=== PATIENT | female | born 1935 | race Caucasian/White ===

== ENCOUNTER → 2016-09-12 | Outpatient (CLI) | payer OTHER, MEDICARE ==
[~2016-09-12] MED LIST: ALBUAER2 INH; ASPI81TA28 PO; CHOL20007 PO; CLR10 PO; EZET10TA63 PO; HYDR-5688 PO; LOSA50TA6 PO; METO100T44 PO; MULT-190 PO; PRAV20TA PO; SPIRONLACTONE HCTZ PO
--- NOTE | 2016-09-12 10:56 | DIAGNOSTIC IMAGING REPORT ---
BILATERAL CAROTID DOPPLER STUDY HISTORY: Carotid stenosis Z98.890 H/O carotid [id number] COMPARISON: 12/16/2015. 10/24/2014. TECHNIQUE: Real-time, grayscale, and color Doppler sonography of the carotid arteries was performed. Imaging reviewed in the transverse and longitudinal planes. All measurements were calculated based on NASCET criteria. FINDINGS: Antegrade flow is seen in the bilateral vertebral arteries. The brachial pressures are hemodynamically similar. Mild plaque formation bilaterally. Interval right endarterectomy. The peak systolic velocity within the right ICA is 83. The right systolic ratio is 1.2. The peak systolic velocity within the left ICA is 85. The left systolic ratio is 1.5. IMPRESSION: 1. No significant stenotic process of the common or internal carotid arteries status post endarterectomy. 2. Moderate 50 present narrowing right external carotid artery. Electronically signed by: Raul Suresh M.D. 09/12/2016 10:55 AM Dictated Date/Time: 09/12/2016 10:53 AM
== END | disposition home or self-care (01) ==
LOC: C.ULTR 09:51
PROVIDERS: ATTEND Surgery
DX: Z98.890 Other specified postprocedural states (principal); I65.21 Occlusion and stenosis of right carotid artery

== ENCOUNTER → 2016-11-21 | Outpatient (CLI) | payer OTHER, MEDICARE ==
[~2016-11-21] MED LIST changes: -HYDR-5688 PO
[2016-11-21 12:17] LABS: BASO % 0.4 %; BASO ABS # 0.03 K/uL (0-0.2); COMPLETE YES; EOS % 1.3 %; HEMATOCRIT 40.8 % (37-47); LYMPH % 10.9 %; LYMPH ABS # 0.84 K/uL (1.2-3.4); MEAN CELL VOLUME 93.2 fL (80-100); MEAN CORPUSCULAR HGB CONC 31.1 g/dl (32-36); MONO % 8.9 %; NEUT % 78.5 %; PLATELET COUNT 199 K/uL (130-400); RED BLOOD COUNT 4.38 M/uL (4.2-5.4); WHITE BLOOD COUNT 7.74 K/uL (4.8-10.8)
[2016-11-21 12:29] LABS: CALCIUM 9.3 mg/dl (8.5-10.1)
[2016-11-21 12:31] LABS: ESTIMATED AVERAGE GLUCOSE 131 mg/dl; HA1C FLAG Normal (Normal)
[2016-11-21 12:36] LABS: ALT/SGPT 19 U/L (12-78); BLOOD UREA NITROGEN 15 mg/dl (7-18); BUN/CREATININE RATIO 16.9 (10-20); CARBON DIOXIDE 28 mmol/L (21-32); CHLORIDE 106 mmol/L (98-107); CHOLESTEROL 146 mg/dl (0-200); CREATININE 0.87 mg/dl (0.60-1.20); GLUCOSE 117 mg/dl (70-99); POTASSIUM 4.6 mmol/L (3.5-5.1); SODIUM 142 mmol/L (136-145); TRIGLYCERIDES 101 mg/dl (0-150); VERY LOW DENSITY LIPOPROT CALC 20 mg/dl
[2016-11-21 12:39] LABS: ALKALINE PHOSPHATASE 108 U/L (45-117); AST/SGOT 20 U/L (15-37); HDL CHOLESTEROL 49 mg/dl; LDL CHOLESTEROL CALCULATED 77 mg/dl
[2016-11-21 12:50] LABS: URINE APPEARANCE CLOUDY (CLEAR); URINE BILIRUBIN NEG (NEG); URINE COLOR DK YELLOW; URINE EPITHELIAL CELL AUTO >30 /lpf (0-5); URINE NITRITE POS (NEG); URINE PH 6.5 (4.5-7.5); UROBILINOGEN NEG (NEG); ZZUR CULT IF INDIC CLEAN CATCH YES
[2016-11-21 12:57] LABS: MANUAL MICROSCOPIC REQUIRED? NO; REVIEW REQ? NO
== END | disposition home or self-care (01) ==
LOC: C.LABBFT 09:27
PROVIDERS: ATTEND Internal Medicine
DX: E11.9 Type 2 diabetes mellitus without complications (principal); E78.5 Hyperlipidemia, unspecified; E55.9 Vitamin D deficiency, unspecified

== ENCOUNTER → 2017-01-19 | Outpatient (CLI) | payer OTHER, MEDICARE ==
[~2017-01-19] MED LIST changes: -METO100T44 PO; +METO1TAB69 PO
--- NOTE | 2017-01-19 14:04 | MAMMOGRAPHY REPORT ---
BILATERAL DIGITAL SCREENING MAMMOGRAM WITH CAD: 01/19/2017 CLINICAL HISTORY: Routine screening. Patient has no complaints. TECHNIQUE: Current study was also evaluated with a Computer Aided Detection (CAD) system. Bilateral CC and MLO views were obtained. COMPARISON: Comparison is made to exams dated: 01/19/2016 mammogram, 01/14/2015 mammogram, 01/13/2014 mamm ogram, 01/09/2013 mammogram, 01/09/2012 mammogram, and 01/06/2011 mammogram - [facility] er. BREAST COMPOSITION: There are scattered areas of fibroglandular density in both breasts. FINDINGS: No suspicious masses, calcifications, or areas of architectural distortion are noted in ei ther breast. There has been no significant interval change compared to prior exams. Bilateral benign -appearing calcifications are not significantly changed. IMPRESSION: ACR BI-RADS CATEGORY 2: BENIGN There is no mammographic evidence of malignancy. A 1 year screening mammogram is recommended. The pa tient will receive written notification of the results. Approximately 10% of breast cancers are not detected with mammography. A negative mammographic report should not delay biopsy if a clinically suggestive mass is present. Danica Floyd M.D. ah/:01/19/2017 12:42:57 [employer] Room Attendant: Rita HALL)(Vishal), [facility] letter sent: Normal 1/2 BI-RADS Code: ACR BI-RADS Category 2: Benign
== END | disposition home or self-care (01) ==
LOC: C.MAMM 11:51
PROVIDERS: ATTEND Internal Medicine
DX: Z12.31 Encounter for screening mammogram for malignant neoplasm of breast (principal)

== ENCOUNTER → 2017-06-15 | Outpatient (CLI) | payer OTHER, MEDICARE ==
[~2017-06-15] MED LIST changes: +METO100T44 PO; -METO1TAB69 PO
[2017-06-15 13:15] LABS: BLOOD UREA NITROGEN 22 mg/dl (7-18); CALCIUM 9.2 mg/dl (8.5-10.1); CARBON DIOXIDE 26 mmol/L (21-32); CREATININE 0.83 mg/dl (0.60-1.20); GLUCOSE 116 mg/dl (70-99); POTASSIUM 4.1 mmol/L (3.5-5.1); SODIUM 137 mmol/L (136-145)
== END | disposition home or self-care (01) ==
LOC: C.LABBFT 10:29
PROVIDERS: ATTEND Internal Medicine
DX: E11.9 Type 2 diabetes mellitus without complications (principal); I10 Essential (primary) hypertension; E55.9 Vitamin D deficiency, unspecified

== ENCOUNTER → 2017-09-04 | Outpatient (CLI) | payer OTHER, MEDICARE | END | disposition home or self-care (01) | LOC: C.LABBFT 10:29 | PROVIDERS: ATTEND Internal Medicine | DX: E55.9 Vitamin D deficiency, unspecified (principal) ==

== ENCOUNTER → 2017-09-20 | Outpatient (CLI) | payer OTHER, MEDICARE ==
--- NOTE | 2017-09-20 15:25 | DIAGNOSTIC IMAGING REPORT ---
BILATERAL CAROTID DOPPLER STUDY HISTORY: I65.29 Carotid artery stenosis, [id number] H/O carotid COMPARISON: Carotid Doppler 09/12/2016. TECHNIQUE: Real-time, grayscale, and color Doppler sonography of the carotid arteries was performed. Imaging reviewed in the transverse and longitudinal planes. All measurements were calculated based on NASCET criteria. FINDINGS: Antegrade flow is seen in the bilateral vertebral arteries. The patient deferred brachial pressures. Mild right and moderate left scattered calcified plaque within the carotid arteries. Prior right endarterectomy. Moderate stenosis within the proximal right external carotid artery with a peak velocity of 225 cm/s. The peak systolic velocity within the right ICA is 73 cm/s. The right systolic ratio is 1.0. The peak systolic velocity within the left ICA is 77 cm/s. The left systolic ratio is 1.0. IMPRESSION: No hemodynamically significant stenosis seen within the bilateral common or internal carotid arteries. Moderate right external carotid artery stenosis is again noted. Electronically signed by: Blair Kirkland M.D. 09/20/2017 3:23 PM Dictated Date/Time: 09/20/2017 3:21 PM
== END | disposition home or self-care (01) ==
LOC: C.ULTR 13:09
PROVIDERS: ATTEND Surgery
DX: I65.21 Occlusion and stenosis of right carotid artery (principal); Z98.890 Other specified postprocedural states

== ENCOUNTER → 2018-01-22 | Outpatient (CLI) | payer OTHER, MEDICARE ==
--- NOTE | 2018-01-22 13:08 | MAMMOGRAPHY REPORT ---
BILATERAL DIGITAL SCREENING MAMMOGRAM TOMOSYNTHESIS WITH CAD: 01/22/2018 CLINICAL HISTORY: Routine screening. TECHNIQUE: The study was acquired using full field digital technology and interpreted from soft copy. Breast tomosynthesis in addition to standard 2D mammography was performed. Current study was also ev aluated with a Computer Aided Detection (CAD) system. COMPARISON: Comparison is made to exams dated: 01/19/2017 mammogram, 01/19/2016 mammogram, 01/14/2015 massimo mogram, 01/13/2014 mammogram, 01/09/2013 mammogram, and 01/09/2012 mammogram - [facility] er. BREAST COMPOSITION: There are scattered areas of fibroglandular density in both breasts. FINDINGS: There are moderate vascular calcifications in the breasts. Scattered stable groupings of c oarse heterogeneous calcifications bilaterally. No suspicious mass, architectural distortion or new c luster of microcalcifications is seen. IMPRESSION: ACR BI-RADS CATEGORY 1: NEGATIVE There is no mammographic evidence of malignancy. A 1 year screening mammogram is recommended.( 019) The patient will receive written notification of the results. Some breast cancers are not detected with mammography. A negative mammographic report should not chacorta y biopsy if a clinically suggestive mass is present. Sandie Kendall M.D. ay/:01/22/2018 12:57:[address] Foreman: RT Phil(Matteo)(M), [facility] letter sent: Normal 1/2 BI-RADS Code: ACR BI-RADS Category 1: Negative
== END | disposition home or self-care (01) ==
LOC: C.MAMM 12:27
PROVIDERS: ATTEND Internal Medicine
DX: Z12.31 Encounter for screening mammogram for malignant neoplasm of breast (principal)

== ENCOUNTER 2023-04-24 20:30 | Inpatient (IN) ==
--- NOTE | 2023-04-24 20:55 | Emergency Department Note ---
Impression & Plan Closed left humeral fracture, Fall from standing, Gait instability, Leukocytosis ED Provider Note HISTORY OF PRESENT ILLNESS: Patient is an 87-year-old female presenting with left upper arm pain and facial pain after fall from standing. Patient reports that she lost her footing at home and fell forward, striking her left shoulder and left face on the ground. Denies loss of consciousness. She is on aspirin daily. Was unable to get up off the ground by herself at 911 was called. Patient denies any numbness or tingling down her arm. She denies passing out. Denies any chest pain, shortness of breath or lightheadedness prior to the fall. She does states she just lost her footing. She states that she is normally ambulatory without any assistive devices, but in the last week has been requiring use of a cane or a walker to remain balance secondary to some gait instability. ROS: as above PHYSICAL EXAM: Constitutional: Patient appears in no acute distress. HENT: Head: Normocephalic. Ecchymosis and developing swelling to the left lateral eyebrow and temporal region. Eyes: EOMI, PERRL Mouth/Throat: Mucous membranes moist. Neck: Trachea midline. Neck supple. Cardiovascular: RRR, No murmurs, rubs or gallops. Intact distal pulses. Pulmonary/Chest: No respiratory distress. Breath sounds clear and equal bilaterally. No wheezes or rales. No chest wall tenderness to palpation. Abdominal: Abdomen soft, no tenderness, rebound or guarding. Musculoskeletal: Patient is able to straight leg raise bilaterally without any pain in the hips or low back. - LUE: Patient has ecchymosis and swelling to the upper left arm. Tender to palpation over the proximal humerus. Able to flex and extend at the elbow. Able to flex and extend at the wrist. Able to give thumbs up, cross fingers and okay sign. Sensation intact to light touch at the nerve distributions of the arm. Intact radial pulse Skin: Warm and dry. No rash, erythema, pallor or cyanosis Psychiatric: Appropriate mood and affect for situation. Neurological: Alert and keenly responsive. CN II-XII grossly intact, moving all extremities equally and fully. MDM: - Vitals signs showed hypertension. - History obtained via patient. Patient presents with left arm pain and facial pain after fall from standing. Patient reports she lost her footing at her home and fell forward, striking her left shoulder and face on the ground. Denies loss of consciousness. She is on aspirin daily. Was unable to get up off the ground and had to call 911. Denies any numbness or tingling down her arm. Denies any chest pain, shortness of breath or lightheadedness prior to the fall. - Chronic conditions affecting care: HTN; HLD; DM-2 - Differential diagnoses include, but are not limited to: Intracranial hemorrhage; CVA; humerus fracture; humerus dislocation; UTI - Order placed for continuous cardiac monitoring. At this time, monitor showed rate of 65 bpm with normal sinus rhythm, per my interpretation. - External medical records reviewed. EMS run sheet was reviewed. Patient was vitally stable in route. No medications were given prehospital. - EKG reviewed by myself showed normal sinus rhythm. Rate 74 bpm. QTc 497. No acute ischemic changes. - Laboratory workup interpreted by myself showed leukocytosis (WBC 14.74) with left shift; stable electrolytes; normal troponin - Xray of left humerus showed proximal humerus fracture, per my interpretation - CT head wo contrast negative for acute intracranial pathology. - Patient givne 50 mcg IV fentanyl for pain control. - Patient's arm was placed in a sling. - Discussed results with patient and her family at bedside. They report that the patient does live alone. States in the last week she has been very unsteady on her feet and has not actually been using a cane or a walker to get around. Given that the patient has a left humerus fracture, she would not be able to balance with a walker. Will admit for PT/OT assessment. - Discussion was had with care associate about patient's case and need for admission - Hospitalist consulted for admission - Patient [facility] service for further evaluation and management. ASSESSMENT AND PLAN: Diagnosis: Left humeral fracture; leukocytosis; fall from standing; gait instability Plan: Admit Past Med/Surg History Medical History Urge incontinence of urine Allergic rhinitis Asthma Carotid artery stenosis, asymptomatic Diabetes mellitus, controlled Hyperlipidemia Hypertension Low back pain Nephrolithiasis Squamous cell carcinoma of vulva Vitamin D deficiency Surgical History History of vulvectomy H/O carotid endarterectomy History of hysterectomy History of cholecystectomy Family History Father Cardiac disorder Myocardial infarction Brother Diabetes Mother Denies family history of Ovarian cancer Prostate cancer Breast cancer Colorectal cancer Uterine cancer Social History (Updated 04/19/23 @ 10:53 by Rita Serrano LPN) Smoking Status: Never smoker Tobacco Type: Cigarettes Age Started Using Tobacco: 17; Age Quit Using Tobacco: 29; packs per day: 0.75; Second Hand Exposure: Yes (her dad and 3 brothers all smoked ); Do You Dip or Chew Tobacco: No; Hx Alcohol Use: Yes Alcohol type: hard liquor Alcohol Intake Frequency: 2-3 x/Week Hx Substance Use: No Preferred Language: Bulgarian Visual Impairment: Limited Hearing Ability: Normal marital status: / Current Living Situation: Alone current occupational status: retired 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 [employer] How many Children do You have: 2 Feels Safe at Home: Yes Childhood Exposure to Second-Hand Smoke: Yes Diet: regular caffeine: Yes Dental Care, Regularly: Yes Physical Activity Frequency: Does not Exercise Seatbelt Use: always Sunscreen Use: No Assistive Devices: Cane and Glasses Allergies Allergies Allergy/AdvReac Type Severity Reaction Status Date / Time lisinopril Allergy Unknown COUGH Verified 04/24/23 22:19 losartan AdvReac Unknown ABDOMINAL Verified 04/24/23 22:19 PAIN Home Meds Home Medications Medication Instructions Recorded Confirmed aspirin 81 mg tablet 81 mg PO DAILY 01/12/19 04/24/23 blood sugar diagnostic (OneTouch #10 ea 01/12/19 04/19/23 Verio test strips) lancets 30 gauge (OneTouch Delica #25 ea 01/12/19 04/18/23 Lancets) Previous Rx's Medication Instructions Recorded amlodipine 5 mg tablet 5 mg PO DAILY #90 tabs 09/12/22 albuterol sulfate 90 mcg/actuation 2 puff inhalation Q4H PRN 10/10/22 aerosol inhaler shortness of breath #18 grams nystatin 100,000 unit/gram topical 1 applic topical BID PRN 10/10/22 powder Candidiasis #60 grams vit C 250 mg-E 90 mg-zinc 40 1 tab PO BID #60 tabs 05/01/23 mg-copper 1 [id number] chew tablet (PreserVision AREDS-2) cholecalciferol (vitamin D3) 50 100 mcg (2 x 50 mcg (2,000 unit)) 12/16/22 mcg (2,000 unit) capsule PO DAILY #30 caps ezetimibe 10 mg tablet 10 mg PO DAILY #90 tabs 12/19/22 metoprolol succinate 100 mg 100 mg PO DAILY #90 tabs 12/19/22 tablet,extended release 24 hr pravastatin 10 mg tablet 10 mg PO HS #90 tabs 12/19/22 alendronate 70 mg tablet 70 mg PO .COMPLEX #4 tabs 04/18/23 Results & Data (ED) Vital Signs Vital Signs - 24 hr 04/24/23 20:40 04/24/23 20:40 04/24/23 20:43 Temperature Temperature Source Pulse Rate 68 71 Pulse Rate [Radial] Pulse Rate from SpO2 Sensor 70 Pulse Rhythm Respiratory Rate 24 Respiratory Effort / Characteristics Respiratory Depth Respiratory Pattern Blood Pressure 172/77 H Blood Pressure Mean 103 Pulse Oximetry 94 Oxygen Delivery Method Sepsis Recent Fever Within 48 Hours Sepsis New/Unexplained Change in Mental Status Sepsis Action Taken by Nursing 04/24/23 20:45 04/24/23 20:50 04/24/23 21:00 Temperature 36.3 C L Temperature Source Oral Pulse Rate 74 81 90 Pulse Rate [Radial] Pulse Rate from SpO2 Sensor 90 Pulse Rhythm Respiratory Rate 17 22 19 Respiratory Effort / Characteristics Non-Labored Spontaneous Respiratory Depth Normal Respiratory Pattern Regular Blood Pressure 172/77 H Blood Pressure Mean 108 Pulse Oximetry 93 96 Oxygen Delivery Method Room Air Sepsis Recent Fever Within 48 Hours No Sepsis New/Unexplained Change in Mental Status N/A Sepsis Action Taken by Nursing No Action Required 04/24/23 21:03 04/24/23 21:10 04/24/23 21:20 Temperature Temperature Source Pulse Rate 92 H 86 80 Pulse Rate [Radial] Pulse Rate from SpO2 Sensor 86 79 Pulse Rhythm Regular Respiratory Rate 17 19 24 Respiratory Effort / Characteristics Respiratory Depth Respiratory Pattern Blood Pressure Blood Pressure Mean Pulse Oximetry 94 92 94 Oxygen Delivery Method Room Air Sepsis Recent Fever Within 48 Hours Sepsis New/Unexplained Change in Mental Status Sepsis Action Taken by Nursing 04/24/23 21:30 04/24/23 21:40 04/24/23 22:20 Temperature Temperature Source Pulse Rate 73 60 Pulse Rate [Radial] 65 Pulse Rate from SpO2 Sensor 185 H Pulse Rhythm Respiratory Rate 29 H 21 17 Respiratory Effort / Characteristics Non-Labored Spontaneous Respiratory Depth Normal Respiratory Pattern Regular Blood Pressure Blood Pressure Mean Pulse Oximetry 81 L 90 Oxygen Delivery Method Room Air Sepsis Recent Fever Within 48 Hours Sepsis New/Unexplained Change in Mental Status Sepsis Action Taken by Nursing Laboratory Data 04/24/23 21:39 04/24/23 21:39 Lab Results 04/24/23 Range/Units 21:39 WBC 14.74 H (4.8-10.8) K/ul RBC 4.19 L (4.20-5.40) M/uL Hgb 12.6 (12.0-16.0) g/dl Hct 39.4 (37.0-47.0) % MCV 94.0 (80.0-100.0) fL MCH 30.1 (25.0-34.0) pg MCHC 32.0 (32.0-36.0) g/dL RDW Std Deviation 47.0 H (36.4-46.3) fL RDW Coeff of Kassandra 13.6 (11.5-14.5) % Plt Count 168 (130-400) K/uL MPV 11.9 (9.4-12.4) fL Immature Gran % (Auto) 0.3 % Neut % (Auto) 90.9 % Lymph % (Auto) 3.7 % Henry % (Auto) 4.7 % Eos % (Auto) 0.1 % Baso % (Auto) 0.3 % Neut # (Auto) 13.41 H (1.40-6.50) K/uL Lymph # (Auto) 0.54 L (1.20-3.40) K/uL Henry # (Auto) 0.69 H (0.11-0.59) K/uL Eos # (Auto) 0.01 (0.00-0.50) K/uL Baso # (Auto) 0.05 (0.00-0.20) K/uL Immature Gran # (Auto) 0.04 (0.01-0.20) K/uL Sodium 139 (136-145) mmol/L Potassium 3.6 (3.5-5.1) mmol/L Chloride 105 (98-107) mmol/L Carbon Dioxide 25 (21-32) mmol/L Anion Gap 9 (3-11) BUN 19 (6-23) mg/dl Creatinine 0.58 L (0.6-1.2) mg/dl Est Cr Clr Drug Dosing 55.9 ml/min Est GFR ( Amer) 96.1 ml/min Est GFR (Non-Af Amer) 82.9 ml/min BUN/Creatinine Ratio 32.8 H (10-20) Glucose 166 H (70-99(Fasting)) mg/dl Calcium 9.0 (8.6-10.3) mg/dl Magnesium 1.9 (1.7-2.4) mg/dl Total Bilirubin 0.3 (0.2-1.0) mg/dl AST 17 (13-39) U/L ALT 12 (7-52) U/L Alkaline Phosphatase 80 (34-104) U/L Troponin I High Sens 7.0 (0-14) pg/ml Total Protein 6.5 (6.0-8.3) gm/dl Albumin 3.9 (3.4-5.0) gm/dl Globulin 2.6 (2.5-4.0) gm/dl Albumin/Globulin Ratio 1.5 (0.9-2) Administered Medications Discontinued Medications Fentanyl Citrate (Fentanyl Citrate Pf 100 Mcg/2 Ml Vial) 50 mcg IV NOW STA Stop: 04/24/23 21:22 Last Admin: 04/24/23 21:31 Dose: 50 mcg Documented By: [facility] Imaging Data Radiologist's Impression: Head CT 04/24/23 20:51 Exam(s): CT HEAD Without Contrast EXAM: CT Head Without Intravenous Contrast CLINICAL HISTORY: Reason for exam: fall from standing; on ASA. TECHNIQUE: Axial computed tomography images of the head/brain without intravenous contrast. CTDI is 64.75 mGy and DLP is 962.98 mGy-cm. Automated exposure control was utilized for the study. A dose lowering technique was utilized adhering to the principles of ALARA. COMPARISON: None. FINDINGS: Brain: No mass effect or acute infarct. No acute hemorrhage. Mild to moderate atrophy and chronic white matter disease. Ventricles: No hydrocephalus or midline shift. Bones/joints: No acute finding. Soft tissues: No scalp hematoma. Sinuses: Clear. Mastoid air cells: No mastoid effusion. IMPRESSION: 1. Mild to moderate age related findings. 2. No acute infarct, bleed, or acute intracranial abnormality. Electronically signed by: Maribel Dawson M.D. 04/24/23 22:56 PM Discharge Plan Visit Data Chief Complaint: Fall Stated Complaint: Fall, Shoulder Pain ED Provider: Gypsy Sims Discharge Problem: Closed left humeral fracture, Fall from standing, Gait instability, Leukocytosis Forms Stand Alone Forms: My [facility] [employer] Prescriptions Prescriptions: No Action amlodipine 5 mg tablet 5 mg PO DAILY Qty: 90 3RF metoprolol succinate 100 mg tablet extended release 24 hr 100 mg PO DAILY Qty: 90 3RF pravastatin 10 mg tablet 10 mg PO HS Qty: 90 3RF ezetimibe 10 mg tablet 10 mg PO DAILY Qty: 90 3RF alendronate 70 mg tablet 70 mg PO .COMPLEX Qty: 4 11RF Rx Instructions: 70 mg orally once weekly on Mondays PreserVision AREDS-2 250-90-40-1 mg tablet,chewable 1 tab PO BID Qty: 60 0RF albuterol sulfate 90 mcg/actuation HFA aerosol inhaler 2 puff inhalation Q4H PRN (Reason: shortness of breath) Qty: 18 5RF nystatin 100,000 unit/gram powder 1 applic topical BID PRN (Reason: Candidiasis) Qty: 60 5RF cholecalciferol (vitamin D3) 50 mcg (2,000 unit) capsule 100 mcg PO DAILY Qty: 30 0RF aspirin 81 mg tablet 81 mg PO DAILY (DME) lancets [OneTouch Delica Lancets] 30 gauge misc See Dose Instructions .ROUTE .MEDSUPPLY Qty: 25 Rx Instructions: DAILY AND NEEDED (DME) OneTouch Verio test strips strip See Dose Instructions .ROUTE .MEDSUPPLY Qty: 10 Rx Instructions: DAILY AND NEEDED Referrals Referrals: Alan Brewer MD [Primary Care Provider] -
[2023-04-24] MEDS ORDERED: fentaNYL citrate PF 100 MCG/2 ML VIAL IV STA (21:21)
[2023-04-24 22:08] LABS: Albumin Globulin Ratio 1.5 (0.9-2); Albumin Level 3.9 gm/dl (3.4-5.0); BUN Creatinine Ratio 32.8 (10-20); Bilirubin,Total 0.3 mg/dl (0.2-1.0); Creatinine Clr Calc Pharmacy 55.9 ml/min; Est GFR (African American) 96.1 ml/min; Est GFR (Non-African American) 82.9 ml/min; Globulin 2.6 gm/dl (2.5-4.0); Magnesium 1.9 mg/dl (1.7-2.4); Potassium 3.6 mmol/L (3.5-5.1); Total Protein 6.5 gm/dl (6.0-8.3)
[2023-04-24 22:32] LABS: Hematocrit (blood only) 39.4 % (37.0-47.0); Hemoglobin 12.6 g/dl (12.0-16.0); Mean Corpuscular Hemoglobin 30.1 pg (25.0-34.0); Mean Platelet Volume 11.9 fL (9.4-12.4); Platelet Count 168 K/uL (130-400); RDW Coefficient of Variation 13.6 % (11.5-14.5); Red Blood Count 4.19 M/uL (4.20-5.40); White Blood Count 14.74 K/ul (4.8-10.8)
--- NOTE | 2023-04-24 22:56 | CT Scan Report ---
Exam(s): CT HEAD Without Contrast EXAM: CT Head Without Intravenous Contrast CLINICAL HISTORY: Reason for exam: fall from standing; on ASA. TECHNIQUE: Axial computed tomography images of the head/brain without intravenous contrast. CTDI is 64.75 mGy and DLP is 962.98 mGy-cm. Automated exposure control was utilized for the study. A dose lowering technique was utilized adhering to the principles of ALARA. COMPARISON: None. FINDINGS: Brain: No mass effect or acute infarct. No acute hemorrhage. Mild to moderate atrophy and chronic white matter disease. Ventricles: No hydrocephalus or midline shift. Bones/joints: No acute finding. Soft tissues: No scalp hematoma. Sinuses: Clear. Mastoid air cells: No mastoid effusion. IMPRESSION: 1. Mild to moderate age related findings. 2. No acute infarct, bleed, or acute intracranial abnormality. Electronically signed by: Maribel Dawson M.D. 04/24/23 22:56 PM
[2023-04-24 23:02] LABS: Basophils # (auto) 0.05 K/uL (0.00-0.20); Basophils % (auto) 0.3 %; Eosinophils # (auto) 0.01 K/uL (0.00-0.50); Eosinophils % (auto) 0.1 %; Immature Granulocytes # (auto) 0.04 K/uL (0.01-0.20); Immature Granulocytes % (auto) 0.3 %; Lymphocytes # (auto) 0.54 K/uL (1.20-3.40); Lymphocytes % (auto) 3.7 %; Monocytes # (auto) 0.69 K/uL (0.11-0.59); Monocytes % (auto) 4.7 %; Neutrophils # (auto) 13.41 K/uL (1.40-6.50); Neutrophils % (auto) 90.9 %
--- NOTE | 2023-04-25 00:59 | History & Physical Report ---
Date of Service April 25, 2023 Assessment & Plan (1) Closed left humeral fracture: Plan: 87-year-old female presenting from home after a fall resulting in a closed left humeral fracture. Pain is presently well controlled. Neurovascularly intact. Patient has been using a walker and cane recently to ambulate. Admit to medical Maintain upper extremity in sling Tylenol 1 g p.o. 3 times daily scheduled Oxycodone 5 mg p.o. every 4 hours as needed Zofran as needed for nausea PT/OT evaluation Orthopedic surgery consultation appreciated Neurochecks with GCS every 4 hours given head trauma (2) Hypertension: Plan: Chronic. Stable. Continue metoprolol Continue amlodipine (3) Hyperlipidemia: Plan: Chronic. Stable. Continue pravastatin Continue Zetia History of Present Illness Chief Complaint: Left humerus fracture Primary Care Provider: Alan Brewer MD Moris Masters is an 87-year-old female with history of diabetes, hypertension hyp erlipidemia presenting from home after a fall resulting in a left humerus fracture. Patient reports that she was walking through her kitchen and was wearing rubber soled shoes when her shoe stuck to the floor and she fell forward. She did bump her head with possible loss of consciousness. Landed predominantly on her left shoulder. She was unable to get up immediately therefore crawled to her phone and called her family. When family arrived, they called EMS. Estimated downtime approximately 1 to 1-1/2 hours. Patient was having some hip pain recently thought to be secondary to sciatica. She typically ambulates independently however, she has been using a cane and walker recently. Patient had a recent excisional biopsy of the right thigh. In the ER, she is afebrile, hemodynamically stable. Left arm placed in brace Allergies Allergy/AdvReac Type Severity Reaction Status Date / Time lisinopril AdvReac Unknown COUGH Verified 04/25/23 02:43 losartan AdvReac Unknown ABDOMINAL Verified 04/24/23 22:19 PAIN Home Medications Medication Instructions Recorded Confirmed Type aspirin 81 mg tablet 81 mg PO DAILY 01/12/19 04/24/23 History blood sugar diagnostic (Zandouch #10 ea 01/12/19 04/19/23 History Verio test strips) lancets 30 gauge (AtheroMedTouch Delica #25 ea 01/12/19 04/18/23 History Lancets) amlodipine 5 mg tablet 5 mg PO DAILY #90 tabs 09/12/22 04/24/23 Rx albuterol sulfate 90 mcg/actuation 2 puff inhalation Q4H PRN 10/10/22 04/24/23 Rx aerosol inhaler shortness of breath #18 grams nystatin 100,000 unit/gram topical 1 applic topical BID PRN 10/10/22 04/24/23 Rx powder Candidiasis #60 grams vit C 250 mg-E 90 mg-zinc 40 1 tab PO BID #60 tabs 10/10/22 04/24/23 Rx mg-copper 1 [id number] chew tablet (PreserVision AREDS-2) cholecalciferol (vitamin D3) 50 100 mcg (2 x 50 mcg (2,000 unit)) 12/16/22 04/24/23 Rx mcg (2,000 unit) capsule PO DAILY #30 caps ezetimibe 10 mg tablet 10 mg PO DAILY #90 tabs 12/19/22 04/24/23 Rx metoprolol succinate 100 mg 100 mg PO DAILY #90 tabs 12/19/22 04/24/23 Rx tablet,extended release 24 hr pravastatin 10 mg tablet 10 mg PO HS #90 tabs 12/19/22 04/24/23 Rx alendronate 70 mg tablet 70 mg PO .COMPLEX #4 tabs 04/18/23 04/24/23 Rx Past Med/Surg History Medical History Urge incontinence of urine Allergic rhinitis Asthma Carotid artery stenosis, asymptomatic Diabetes mellitus, controlled pre-diabetic Hyperlipidemia Hypertension Low back pain Nephrolithiasis Squamous cell carcinoma of vulva Vitamin D deficiency Surgical History History of vulvectomy partial rad vulvectomy 2011, neg margins H/O carotid endarterectomy History of hysterectomy TVH History of cholecystectomy Family History Father Cardiac disorder Myocardial infarction Brother Diabetes Mother age 87 "old age" Denies family history of Ovarian cancer Prostate cancer Breast cancer Colorectal cancer Uterine cancer Social History Smoking Status: Never smoker Tobacco Type: Cigarettes Age Started Using Tobacco: 17; Age Quit Using Tobacco: 29; packs per day: 0.75; Second Hand Exposure: Yes (her dad and 3 brothers all smoked ); Do You Dip or Chew Tobacco: No; Hx Alcohol Use: Yes Alcohol type: hard liquor Alcohol Intake Frequency: 2-3 x/Week Hx Substance Use: No Preferred Language: Stateless Communication Ability: Effective Visual Impairment: Limited Hearing Ability: Normal Direct Care Counselor Required: No Beliefs That Will Affect Care: None marital status: / Current Living Situation: Alone current occupational status: retired 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 [employer] How many Children do You have: 2 Feels Safe at Home: Yes Safety Concerns: Feels Safe At This Time Childhood Exposure to Second-Hand Smoke: Yes Diet: regular caffeine: Yes Dental Care, Regularly: Yes Physical Activity Frequency: Does not Exercise Seatbelt Use: always Sunscreen Use: No Assistive Devices: Glasses Review of Systems Review of Systems: All systems reviewed & are unremarkable except as noted in HPI & below Physical Exam Physical Exam: General: patient resting comfortably, NAD, non-toxic in appearance, AA&O x 4 Skin: warm, dry, intact, no rashes or lesions HEENT: Bruise above left eye, PERRL, EOMI, anicteric sclera, conjunctiva without injection, external ear normal to inspection and nontender, nares patent, moist mucus membranes, dentition intact, no oropharyngeal lesions, neck supple, trachea midline, no LAD, no thyromegaly, no JVD Heart: +S1/S2, regular, no m/r/g Left upper extremity placed in sling. Neurovascularly intact Lungs: equal air entry bilaterally, no rales/rhonchi/wheezes Abd: +BS, soft, NT/ND, no masses/organomegaly/ascites Ext: warm, 2+ pulses in UE/LE bilaterally, no clubbing/cyanosis or edema Neuro: nonfocal, patient AA&O x 4, speech intact, no facial droop, moving all extremities on command with equal strength 5/5 Results & Data Results & Data Vital Signs (Past 12 Hours) Vital Signs Temp Pulse Pulse Resp BP BP Pulse Ox 04/25/23 00:37 65 04/25/23 00:00 65 17 172/77 H 96 04/24/23 22:20 65 17 90 04/24/23 21:40 60 21 04/24/23 21:30 73 29 H 81 L 04/24/23 21:20 80 24 94 04/24/23 21:10 86 19 92 04/24/23 21:03 92 H 17 94 04/24/23 21:00 90 19 96 04/24/23 20:50 81 22 04/24/23 20:45 36.3 C L 74 17 172/77 H 93 04/24/23 20:43 71 04/24/23 20:40 172/77 H 04/24/23 20:40 68 24 94 O2 Del Method 04/25/23 00:37 04/25/23 00:00 Room Air 04/24/23 22:20 Room Air 04/24/23 21:40 04/24/23 21:30 04/24/23 21:20 04/24/23 21:10 04/24/23 21:03 Room Air 04/24/23 21:00 04/24/23 20:50 04/24/23 20:45 Room Air 04/24/23 20:43 04/24/23 20:40 04/24/23 20:40 Laboratory Results Laboratory Results WBC 14.74 K/ul (4.8-10.8) H 04/24/23 21:39 RBC 4.19 M/uL (4.20-5.40) L 04/24/23 21:39 Hgb 12.6 g/dl (12.0-16.0) 04/24/23 21:39 Hct 39.4 % (37.0-47.0) 04/24/23 21:39 MCV 94.0 fL (80.0-100.0) 04/24/23 21:39 MCH 30.1 pg (25.0-34.0) 04/24/23 21:39 MCHC 32.0 g/dL (32.0-36.0) 04/24/23 21:39 RDW Std Deviation 47.0 fL (36.4-46.3) H 04/24/23 21:39 RDW Coeff of Kassandra 13.6 % (11.5-14.5) 04/24/23 21:39 Plt Count 168 K/uL (130-400) 04/24/23 21:39 MPV 11.9 fL (9.4-12.4) 04/24/23 21:39 Immature Gran % (Auto) 0.3 % 04/24/23 21:39 Neut % (Auto) 90.9 % 04/24/23 21:39 Lymph % (Auto) 3.7 % 04/24/23 21:39 [place] % (Auto) 4.7 % 04/24/23 21:39 Eos % (Auto) 0.1 % 04/24/23 21:39 Baso % (Auto) 0.3 % 04/24/23 21:39 Neut # (Auto) 13.41 K/uL (1.40-6.50) H 04/24/23 21:39 Lymph # (Auto) 0.54 K/uL (1.20-3.40) L 04/24/23 21:39 [place] # (Auto) 0.69 K/uL (0.11-0.59) H 04/24/23 21:39 Eos # (Auto) 0.01 K/uL (0.00-0.50) 04/24/23 21:39 Baso # (Auto) 0.05 K/uL (0.00-0.20) 04/24/23 21:39 Immature Gran # (Auto) 0.04 K/uL (0.01-0.20) 04/24/23 21:39 Sodium 139 mmol/L (136-145) 04/24/23 21:39 Potassium 3.6 mmol/L (3.5-5.1) 04/24/23 21:39 Chloride 105 mmol/L (98-107) 04/24/23 21:39 Carbon Dioxide 25 mmol/L (21-32) 04/24/23 21:39 Anion Gap 9 (3-11) 04/24/23 21:39 BUN 19 mg/dl (6-23) 04/24/23 21:39 Creatinine 0.58 mg/dl (0.6-1.2) L 04/24/23 21:39 Est Cr Clr Drug Dosing 55.9 ml/min 04/24/23 21:39 Est GFR ( Amer) 96.1 ml/min 04/24/23 21:39 Est GFR (Non-Af Amer) 82.9 ml/min 04/24/23 21:39 BUN/Creatinine Ratio 32.8 (10-20) H 04/24/23 21:39 Glucose 166 mg/dl (70-99(Fasting)) H 04/24/23 21:39 Calcium 9.0 mg/dl (8.6-10.3) 04/24/23 21:39 Magnesium 1.9 mg/dl (1.7-2.4) 04/24/23 21:39 Total Bilirubin 0.3 mg/dl (0.2-1.0) 04/24/23 21:39 AST 17 U/L (13-39) 04/24/23 21:39 ALT 12 U/L (7-52) 04/24/23 21:39 Alkaline Phosphatase 80 U/L (34-104) 04/24/23 21:39 Troponin I High Sens 7.0 pg/ml (0-14) 04/24/23 21:39 Total Protein 6.5 gm/dl (6.0-8.3) 04/24/23 21:39 Albumin 3.9 gm/dl (3.4-5.0) 04/24/23 21:39 Globulin 2.6 gm/dl (2.5-4.0) 04/24/23 21:39 Albumin/Globulin Ratio 1.5 (0.9-2) 04/24/23 21:[address] 04/24/23 20:51 Exam(s): CT HEAD Without Contrast EXAM: CT Head Without Intravenous Contrast CLINICAL HISTORY: Reason for exam: fall from standing; on ASA. TECHNIQUE: Axial computed tomography images of the head/brain without intravenous contrast. CTDI is 64.75 mGy and DLP is 962.98 mGy-cm. Automated exposure control was utilized for the study. A dose lowering technique was utilized adhering to the principles of ALARA. COMPARISON: None. FINDINGS: Brain: No mass effect or acute infarct. No acute hemorrhage. Mild to moderate atrophy and chronic white matter disease. Ventricles: No hydrocephalus or midline shift. Bones/joints: No acute finding. Soft tissues: No scalp hematoma. Sinuses: Clear. Mastoid air cells: No mastoid effusion. IMPRESSION: 1. Mild to moderate age related findings. 2. No acute infarct, bleed, or acute intracranial abnormality. Electronically signed by: Maribel Dawson M.D. 04/24/23 22:56 PM PG Care Time/CCT Total # of Minutes Spent Total Time Spent with Patient: Total time spent is greater than 50% in coordination of care (as documented) at patient's floor/unit and/or counseling patient: Coding Level of Care Code 13726 INT INP/OBS CARE 2/55MIN Diagnoses Closed left humeral fracture S42.302A Essential hypertension I10 Hypertension type: essential hypertension Hyperlipidemia E78.5 (2) Hypertension Hypertension type: essential hypertension Qualified Code(s): I10 - Essential (primary) hypertension
[2023-04-25] MEDS ORDERED: DOCUSATE SODIUM 100 MG CAP PO PRN (02:26)
[2023-04-25] MEDS ORDERED: ONDANSETRON INJ 2 MG/ML 2 ML VIAL IV PRN (02:26)
[2023-04-25] MEDS ORDERED: ALBUTEROL HFA 8 GM INHALER INH PRN (02:26)
[2023-04-25] MEDS: ACETAMINOPHEN 500 MG TAB PO SCH ×3 (05:37→21:38)
[2023-04-25 06:22] LABS: Appearance Urine Turbid (Clear); Bacteria Urine Automated 4+ (Negative); Bilirubin Urine Negative (Negative); Blood Urine 1+ (Negative); Cast Urine Automated 0 /lpf (0-5); Color Urine Yellow; Epithelial Cell Urine Auto >30 /lpf (0-5); Glucose Urine UA Negative (Negative); Ketones Urine 1+ (Negative); Leukocyte Esterase Urine 3+ (Negative); Nitrite Urine Positive (Negative); Protein Urine 1+ (Negative); RBC Urine Automated 0-4 /hpf (0-4); Specific Gravity Urine 1.017 (1.000-1.030); Urobilinogen Urine Negative (Negative); WBC Urine Automated >30 /hpf (0-5)
[2023-04-25] MEDS: METOPROLOL SUCC 50MG EXT REL TAB PO SCH (07:20)
[2023-04-25] MEDS: amLODIPine BESYLATE 5 MG TAB PO SCH (07:20)
[2023-04-25] MEDS: EZETIMIBE 10 MG TAB PO SCH (07:20)
[2023-04-25] MEDS: ASPIRIN 81 MG ECTAB PO SCH (07:21)
--- NOTE | 2023-04-25 07:41 | XRay Report ---
XR humerus LT 2V HISTORY: 87 years-old Female upper arm pain s/p fall acute pain in the left upper arm status post fa ll COMPARISON: Chest radiograph of same day TECHNIQUE: 2 views of the left humerus FINDINGS: Demineralized appearance of the bones. Moderate glenohumeral and AC joint osteoarthritis. Acute impac no proximal humeral fracture is noted with greater tuberosity lateral displacement of 1.5 cm. IMPRESSION: Acute, impacted and mildly displaced proximal humeral fracture. Findings could be further evaluated with dedicated shoulder radiographs. ACT 112: Negative or not required by law. The above report was generated using voice recognition software. It may contain grammatical, syntax o r spelling errors. Electronically signed by: Marcello Mendoza M.D. 04/25/2023 7:40 AM
--- NOTE | 2023-04-25 07:42 | XRay Report ---
XR chest 1V portable HISTORY: 87 years-old Female fall from standing acute chest trauma status post fall COMPARISON: Left humerus radiographs of same day, chest radiograph 12/20/2006. TECHNIQUE: AP view of the chest FINDINGS: Acute impacted left proximal humeral fracture with mild displacement. Demineralized appearance of the bones. Cardiac silhouette is enlarged. Atherosclerosis of the aorta. Mild chronic interstitial coars ening without pneumothorax, large pleural effusion or overt pulmonary edema. Mild bibasilar atelectas is. IMPRESSION: 1. Cardiomegaly without acute cardiopulmonary abnormality. 2. Acute, impacted and mildly displaced left proximal humeral fracture. ACT 112: Negative or not required by law. The above report was generated using voice recognition software. It may contain grammatical, syntax o r spelling errors. Electronically signed by: Marcello Mendoza M.D. 04/25/2023 7:41 AM
--- NOTE | 2023-04-25 09:51 | Orthopedic Consultation ---
Date of Service April 25, 2023 Assessment & Plan (1) Closed left humeral fracture: At this point, her left proximal humerus fracture is able to be treated conservatively. She will continue with the sling at this point for immobilization of the left shoulder. She may work with physical therapy/Occupational Therapy and work on range of motion from the elbow down to the hand. She will follow-up with the sports medicine team through [facility] [place] which they will closely follow her fracture to make sure it does not further displace. From an orthopedic standpoint, she is cleared for discharge. Please [place] text or reach out to [facility] if patient's status changes. The patient was seen and examined by myself, Reji cShilling MD. She is got a impacted proximal humerus fracture which is a stable. Agree with above discussion. We will plan on a sling and swath for immobilization for the next 2 weeks. She will follow-up in clinic in 2 weeks and likely begin some gentle pendulum exercises. Will be in her best interest to sleep and somewhat head elevated position. Any orthopedic questions can direct me at [phone]. History of Present Illness Reason for Consultation: . Left Humerus FX Requesting Physician: . Attending Physician: Jeffrey Ellis MD . Patient is an 87-year-old female who presented to the [facility] emergency department yesterday after a fall that she sustained. She noted that she tripped after her shoe got caught on her hardwood floor. She did note that she hit her head and landed on her left side and was on the ground for a couple hours before anyone got to her. She reported to the emergency department where scans were done and the only positive scan was for a left proximal humerus fracture. She is currently in a sling. Today, she states that her pain is well controlled in the immobilizer. She notes that the pain is exacerbated with any sort of movement to the left upper extremity. She denies any neck pain, distal extremity pain, numbness/tingling, or paresthesias. She is currently taking a baby aspirin daily. Allergies Allergy/AdvReac Type Severity Reaction Status Date / Time lisinopril AdvReac Unknown COUGH Verified 04/25/23 02:43 losartan AdvReac Unknown ABDOMINAL Verified 04/24/23 22:19 PAIN Home Medications Medication Instructions Recorded Confirmed Type aspirin 81 mg tablet 81 mg PO DAILY 01/12/19 04/24/23 History blood sugar diagnostic (CarltonTouch #10 ea 01/12/19 04/19/23 History Verio test strips) lancets 30 gauge (CarltonTouch Delica #25 ea 01/12/19 04/18/23 History Lancets) amlodipine 5 mg tablet 5 mg PO DAILY #90 tabs 09/12/22 04/24/23 Rx albuterol sulfate 90 mcg/actuation 2 puff inhalation Q4H PRN 10/10/22 04/24/23 Rx aerosol inhaler shortness of breath #18 grams nystatin 100,000 unit/gram topical 1 applic topical BID PRN 10/10/22 04/24/23 Rx powder Candidiasis #60 grams vit C 250 mg-E 90 mg-zinc 40 1 tab PO BID #60 tabs 10/10/22 04/24/23 Rx mg-copper 1 [id number] chew tablet (PreserVision AREDS-2) cholecalciferol (vitamin D3) 50 100 mcg (2 x 50 mcg (2,000 unit)) 12/16/22 04/24/23 Rx mcg (2,000 unit) capsule PO DAILY #30 caps ezetimibe 10 mg tablet 10 mg PO DAILY #90 tabs 12/19/22 04/24/23 Rx metoprolol succinate 100 mg 100 mg PO DAILY #90 tabs 12/19/22 04/24/23 Rx tablet,extended release 24 hr pravastatin 10 mg tablet 10 mg PO HS #90 tabs 12/19/22 04/24/23 Rx alendronate 70 mg tablet 70 mg PO .COMPLEX #4 tabs 04/18/23 04/24/23 Rx Past Med/Surg History Medical History Urge incontinence of urine Allergic rhinitis Asthma Carotid artery stenosis, asymptomatic Diabetes mellitus, controlled pre-diabetic Hyperlipidemia Hypertension Low back pain Nephrolithiasis Squamous cell carcinoma of vulva Vitamin D deficiency Surgical History History of vulvectomy partial rad vulvectomy 2011, neg margins H/O carotid endarterectomy History of hysterectomy TVH History of cholecystectomy Family History Father Cardiac disorder Myocardial infarction Brother Diabetes Mother age 87 "old age" Denies family history of Ovarian cancer Prostate cancer Breast cancer Colorectal cancer Uterine cancer Social History Smoking Status: Never smoker Tobacco Type: Cigarettes Age Started Using Tobacco: 17; Age Quit Using Tobacco: 29; packs per day: 0.75; Second Hand Exposure: Yes (her dad and 3 brothers all smoked ); Do You Dip or Chew Tobacco: No; Hx Alcohol Use: Yes Alcohol type: hard liquor Alcohol Intake Frequency: 2-3 x/Week Hx Substance Use: No Preferred Language: Lithuanian Communication Ability: Effective Visual Impairment: Limited Hearing Ability: Normal Qa Intern Required: No Beliefs That Will Affect Care: None marital status: / Current Living Situation: Alone current occupational status: retired 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 Physical Exam . General: patient resting comfortably, NAD, non-toxic in appearance, AA&O x 4 Skin: warm, dry, intact, no rashes or lesions HEENT: Bruise above left eye, PERRL, EOMI, anicteric sclera, conjunctiva without injection, external ear normal to inspection and nontender, nares patent, moist mucus membranes, dentition intact, no oropharyngeal lesions, neck supple, trachea midline, no LAD, no thyromegaly, no JVD Heart: +S1/S2, regular, no m/r/g Left upper extremity placed in sling. Neurovascularly intact Lungs: equal air entry bilaterally, no rales/rhonchi/wheezes Abd: +BS, soft, NT/ND, no masses/organomegaly/ascites Neuro: nonfocal, patient AA&O x 4, speech intact, no facial droop, moving all extremities on command with equal strength 5/5 Musculoskeletal Focused exam of the left upper extremity reveals mild edema with ecchymosis diffusely throughout the left upper extremity. Tenderness to palpation diffusely throughout the left shoulder girdle. Range of motion and strength of the left shoulder was not tested due to known fracture. Equal strength and range of motion from the elbow, wrist, and all 5 digits. Intact median, ulnar, radial nerve function. +2 radial pulse. Less than 2-second capillary refill. Normal sensation. Neurovascular intact. Results & Data Results & Data Laboratory Results . Diagnostic Findings Humerus X-Ray 04/24/23 20:51 XR humerus LT 2V HISTORY: 87 years-old Female upper arm pain s/p fall acute pain in the left upper arm status post fall COMPARISON: Chest radiograph of same day TECHNIQUE: 2 views of the left humerus FINDINGS: Demineralized appearance of the bones. Moderate glenohumeral and AC joint osteoarthritis. Acute impacted proximal humeral fracture is noted with greater tuberosity lateral displacement of 1.5 cm. IMPRESSION: Acute, impacted and mildly displaced proximal humeral fracture. Findings could be further evaluated with dedicated shoulder radiographs. ACT 112: Negative or not required by law. The above report was generated using voice recognition software. It may contain grammatical, syntax or spelling errors. Electronically signed by: Marcello Mendoza M.D. 04/25/2023 7:40 AM PG Care Time/CCT Total # of Minutes Spent Total Time Spent with Patient: Total time spent is greater than 50% in coordination of care (as documented) at patient's floor/unit and/or counseling patient: Coding Level of Care Code 21589 IN/OBS CONSULT LVL 4,60M Diagnoses Closed left humeral fracture S42.302A
--- NOTE | 2023-04-25 10:56 | Electrocardiogram Report ---
Test Reason : Blood Pressure : / mmHG Vent. Rate : 074 BPM Atrial Rate : 074 BPM P-R Int : 186 ms QRS Dur : 084 ms QT Int : 448 ms P-R-T Axes : -17 033 005 degrees QTc Int : 497 ms Poor data quality, interpretation may be adversely affected Normal sinus rhythm Normal ECG When compared with ECG of 09-MAR-2016 10:54, No significant change Confirmed by Luis Luz ([id number]) on 04/25/2023 10:55:35 AM Referred By: REFERRED SELF Confirmed By:Luis Luz
[2023-04-25] MEDS: cefTRIAXone SODIUM 2,000 MG in DEXTROSE 5 % MINI-B 50 ML IV SCH (14:11)
[2023-04-25] MEDS ORDERED: PRAVASTATIN SOD 10 MG TAB PO SCH (21:00)
[2023-04-25] MEDS: oxyCODONE HCL IR 5 MG TAB (IMMEDIATE RELEASE) PO PRN (21:40)
[2023-04-26] MEDS: ACETAMINOPHEN 500 MG TAB PO SCH ×2 (05:20→13:14)
[2023-04-26] MEDS: oxyCODONE HCL IR 5 MG TAB (IMMEDIATE RELEASE) PO PRN ×3 (05:22→16:16)
[2023-04-26 07:08] LABS: Hematocrit (blood only) 33.8 % (37.0-47.0); Hemoglobin 10.9 g/dl (12.0-16.0); Mean Corpuscular Hemoglobin 29.9 pg (25.0-34.0); Mean Corpuscular Hgb Conc 32.2 g/dL (32.0-36.0); Mean Corpuscular Volume 92.9 fL (80.0-100.0); Mean Platelet Volume 11.8 fL (9.4-12.4); Platelet Count 153 K/uL (130-400); RDW Coefficient of Variation 14.3 % (11.5-14.5); RDW Standard Deviation 48.5 fL (36.4-46.3); Red Blood Count 3.64 M/uL (4.20-5.40); White Blood Count 8.73 K/ul (4.8-10.8)
[2023-04-26] MEDS: METOPROLOL SUCC 50MG EXT REL TAB PO SCH (08:24)
[2023-04-26] MEDS: EZETIMIBE 10 MG TAB PO SCH (08:24)
[2023-04-26] MEDS: amLODIPine BESYLATE 5 MG TAB PO SCH (08:24)
[2023-04-26] MEDS: ASPIRIN 81 MG ECTAB PO SCH (08:24)
[2023-04-26 08:53] LABS: BUN Creatinine Ratio 28.4 (10-20); Calcium 8.5 mg/dl (8.6-10.3); Creatinine Clr Calc Pharmacy 52.1 ml/min; Est GFR (African American) 84.4 ml/min; Est GFR (Non-African American) 72.8 ml/min
[2023-04-26] MEDS: MICONAZOLE NITRATE POWDER 85 GM EXT SCH ×2 (12:23→16:14)
[2023-04-26] MEDS: cefTRIAXone SODIUM 2,000 MG in DEXTROSE 5 % MINI-B 50 ML IV SCH (13:17)
--- NOTE | 2023-04-26 14:05 | Hospitalist Progress Note ---
Date of Service April 26, 2023 Assessment & Plan (1) Closed left humeral fracture: Plan: 87-year-old female presenting from home after a fall resulting in a closed left humeral fracture. Pain is presently well controlled. Neurovascularly intact. Patient has been using a walker and cane recently to ambulate. 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 3 times daily scheduled Oxycodone 5 mg p.o. every 4 hours as needed Zofran as needed for nausea PT/OT evaluation Orthopedic surgery consultation appreciated Neurochecks with GCS every 4 hours given head trauma (2) Hypertension: Plan: Chronic. Stable. Continue metoprolol Continue amlodipine (3) Hyperlipidemia: Plan: Chronic. Stable. Continue pravastatin Continue Zetia (4) UTI (urinary tract infection): Plan: continue ceftriaxone (5) Morbid obesity: Plan: patient adviced on diet and xercise Plan patient adviced on lifestyle changes Admission and Anticipated Discharge Date Admission Date: April 25, 2023 Results & Data Results & Data Vital Signs (Past 12 Hours) Vital Signs Temp Pulse Resp BP Pulse Ox O2 Del Method 04/26/23 07:39 97.7 F 67 18 150/77 H 94 Room Air PG Care Time/CCT Total # of Minutes Spent Total Time Spent with Patient: Total time spent is greater than 50% in coordination of care (as documented) at patient's floor/unit and/or counseling patient: Coding Level of Care Code 10001 SUB INP/OBS CARE 2/35MIN Diagnoses Closed left humeral fracture S42.302A Essential hypertension I10 Hypertension type: essential hypertension Hyperlipidemia E78.5 UTI (urinary tract infection) N39.0 Morbid obesity E66.01 Time Spent (min) 35 (2) Hypertension Hypertension type: essential hypertension Qualified Code(s): I10 - Essential (primary) hypertension
--- NOTE | 2023-04-26 14:17 | Discharge Summary ---
Date of Service April 26, 2023 Admission HPI Per Admitting Provider Moris Masters is an 87-year-old female with history of diabetes, hypertension hyperlipidemia presenting from home after a fall resulting in a left humerus fracture. Patient reports that she was walking through her kitchen and was wearing rubber soled shoes when her shoe stuck to the floor and she fell forward. She did bump her head with possible loss of consciousness. Landed predominantly on her left shoulder. She was unable to get up immediately therefore crawled to her phone and called her family. When family arrived, they called EMS. Estimated downtime approximately 1 to 1-1/2 hours. Patient was having some hip pain recently thought to be secondary to sciatica. She typically ambulates independently however, she has been using a cane and walker recently. Patient had a recent excisional biopsy of the right thigh. In the ER, she is afebrile, hemodynamically stable. Left arm placed in brace Principal Diagnosis humeral fracture Discharge Exam The patient is awake, alert and oriented 3, well developed and well nourished, normocephalic and atraumatic, lying in bed and in no acute distress. HEENT--PERRL, EOMI, mucous membranes and oropharynx mildly dry Neck--supple. No JVD. No bruits. Thyroid normal, trachea midline, no adenopathy. Heart--normal S1 and S2. No murmurs, rubs or gallops. Lungs--clear bilaterally, no respiratory distress, no accessory muscle use. Abdomen--normal bowel sounds and soft. Mild epigastric and left sided abdominal pain Extremities--left ue in sling Dermatologic--normal skin turgor, normal color, no abnormal lymph nodes, no rash. Neurologic--cranial nerves II through XII grossly intact. Rheumatologic--normal range of motion. Psychiatric--normal affect. Discharge Data Allergies Allergy/AdvReac Type Severity Reaction Status Date / Time lisinopril AdvReac Unknown COUGH Verified 04/25/23 02:43 losartan AdvReac Unknown ABDOMINAL Verified 04/24/23 22:19 PAIN Consultations 04/24/23 23:51 ED Decision to Admit Stat 04/25/23 02:26 Consult Orthopedic Surgery Routine Ordered Studies 04/24/23 20:51 CT head/brain wo con Stat Hospital Course (1) Closed left humeral fracture: 87-year-old female presenting from home after a fall resulting in a closed left humeral fracture. Pain is presently well controlled. Neurovascularly intact. Patient has been using a walker and cane recently to ambulate. 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 3 times daily scheduled Oxycodone 5 mg p.o. every 4 hours as needed Zofran as needed for nausea PT/OT evaluation Orthopedic surgery consultation appreciated -Continue conservative mgt with sling (2) Hypertension: Chronic. Stable. Continue metoprolol Continue amlodipine (3) Hyperlipidemia: Chronic. Stable. Continue pravastatin Continue Zetia (4) UTI (urinary tract infection): continue ceftriaxone, change to PO cephalexin 500mg BID for 5 days (5) Morbid obesity: patient adviced on diet and xercise Plan patient adviced on lifestyle changes Total Time Total Time Spent Total Time Spent (In Minutes): 35 Discharge Plan Discharge Items Patient Disposition: Transfer Nursing Home Fac Reason For Visit: FALL, LEFT HUMERUS FRACTURE Discharge Diagnosis: left humeral fracture, UTI Activity: Resume your previous activity Non-emergency contact: Primary Care Provider Call non-emergency contact if: you have any medication questions Follow-up/Referrals: Alan Brewer MD [Primary Care Provider] - Diet: Regular Addtl Attending Provider Instructions: At this point, her left proximal humerus fracture is able to be treated conservatively. You will continue with the sling at this point for immobilization of the left shoulder. You may work with physical therapy/Occupational Therapy and work on range of motion from the elbow down to the hand. You will follow-up with the sports medicine team through [facility] o rthopedics in which they will closely follow your fracture to make sure it does not further displace. Follow up with orthopedics in 2 weeks Pending Studies at Discharge: No Stand-Alone Forms: My [facility] Skilled Items Patient informed of condition?: Yes DNR: Yes Discharge Level of Care: Skilled Communicable Disease: No Discharge Prognosis: Stable Lines: None Urinary Catheter: No Medications and DC Order Prescriptions: New cephalexin 500 mg capsule 500 mg PO BID 5 Days Qty: 10 0RF Continued amlodipine 5 mg tablet 5 mg PO DAILY Qty: 90 3RF metoprolol succinate 100 mg tablet extended release 24 hr 100 mg PO DAILY Qty: 90 3RF pravastatin 10 mg tablet 10 mg PO HS Qty: 90 3RF ezetimibe 10 mg tablet 10 mg PO DAILY Qty: 90 3RF alendronate 70 mg tablet 70 mg PO .COMPLEX Qty: 4 11RF Rx Instructions: 70 mg orally once weekly on Mondays PreserVision AREDS-2 250-90-40-1 mg tablet,chewable 1 tab PO BID Qty: 60 0RF albuterol sulfate 90 mcg/actuation HFA aerosol inhaler 2 puff inhalation Q4H PRN (Reason: shortness of breath) Qty: 18 5RF nystatin 100,000 unit/gram powder 1 applic topical BID PRN (Reason: Candidiasis) Qty: 60 5RF cholecalciferol (vitamin D3) 50 mcg (2,000 unit) capsule 100 mcg PO DAILY Qty: 30 0RF aspirin 81 mg tablet 81 mg PO DAILY (DME) lancets [OneTouch Delica Lancets] 30 gauge misc See Dose Instructions .ROUTE .MEDSUPPLY Qty: 25 Rx Instructions: DAILY AND NEEDED (DME) OneTouch Verio test strips strip See Dose Instructions .ROUTE .MEDSUPPLY Qty: 10 Rx Instructions: DAILY AND NEEDED Discharge Orders: Discharge Order (Routine); Ordered 04/26/23 Ordered By: Jeffrey Ellis Admission Data Admit Date/Time: 04/25/23 00:59 Attending Provider: Jeffrey Ellis Admit Provider: Nicole Schilling Primary Care Provider: Alan Brewer Other Providers: Nicole Schilling; Reji Schilling; [facility] Coding Level of Care Code 47433 INP/OBS DISCH >30 MIN Diagnoses Closed left humeral fracture S42.302A Essential hypertension I10 Hypertension type: essential hypertension Hyperlipidemia E78.5 UTI (urinary tract infection) N39.0 Morbid obesity E66.01 Time Spent (min) 35
--- OUTSIDE RECORDS SUMMARY | 2023-05-01 21:04 | External Medical Summary ---
Author Name Unknown Address Unknown Organization [id number]:[facility] [place] [address] Laboratory Report Ordering Provider Test Date Status JHONY BAIN 04/27/2023 06:15:00 Final Observation Date Value Abnormality Reference (Units ) Status WBC, Total 04/27/2023 06:15:00 9.48 4.00-10.8 0 (K/uL) Final RBC 04/27/2023 06:15:00 3.81 3.85-5.15 (M/uL) Final Hemoglobin 04/27/2023 06:15:00 11.2 Below low normal 12 .0-15.3 (g/dL) Final HCT 04/27/2023 06:15:00 37.7 36.0-45.2 (%) Final MCV 04/27/2023 06:15:00 99.0 81.5-97.5 (fL) Final MCH 04/27/2023 06:15:00 29.4 27.0-34.0 (pg) Final MCHC 04/27/2023 06:15:00 29.7 32.0-36.0 (g/dL) Final RDW 04/27/2023 06:15:00 14.5 11.5-15.5 (%) Final Platelets 04/27/2023 06:15:00 164 140-400 (K /uL) Final MPV 04/27/2023 06:15:00 12.2 6.6-11.1 ( fL) Final Performing Location [facility] [place] [address]
--- OUTSIDE RECORDS SUMMARY | 2023-05-01 21:04 | External Medical Summary ---
Author Name Unknown Address Unknown Organization [id number]:[facility] [place] [place] [address] Laboratory Report Ordering Provider Test Date Status JHONY BAIN 04/27/2023 06:15:00 Final Observation Date Value Abnormality Reference (Units ) Status BUN 04/27/2023 06:15:00 19 6-20 (mg/dL) Final Creatinine 04/27/2023 06:15:00 0.6 0.5-1.0 (mg/dL) Final Glomerular filtration rate/1.73 sq M.predicted [Volume Rate/Area] in Serum, Plasma or Blood by Creatinine-based formula (CKD-EPI) 04/27/2023 06:15:00 86 >=60 (mL/min) Final eGFR is calculated based on the CKD-EPI 2020 equation SODIUM 04/27/2023 06:15:00 142 135-146 (m mol/L) Final Potassium 04/27/2023 06:15:00 4.0 3.5-5.1 (m mol/L) Final Cl 04/27/2023 06:15:00 104 98-107 (mm ol/L) Final CO2 04/27/2023 06:15:00 29 22-32 (mmo l/L) Final Anion gap 04/27/2023 06:15:00 9 7-15 (mmol /L) Final Glucose 04/27/2023 06:15:00 114 70-120 (mg /dL) Final Calcium 04/27/2023 06:15:00 8.5 8.4-10.2 ( mg/dL) Final Performing Location [facility] [place] [place] [address]
== END 2023-04-26 16:51 | DRG 543 ==
LOC: ED 20:30 → 3E 04-25 00:59 → OBSVTOIN 04-25 00:59 → SUATTDRO 04-25 00:59 → INTOOBSV 04-25 00:59 → 3E 04-25 02:13

== ENCOUNTER 2024-04-12 08:23 | Inpatient (IN) ==
[2024-04-12 10:14] LABS: Appearance Urine Cloudy (Clear); Bacteria Urine Automated None Seen (None Seen); Bilirubin Urine Negative (Negative); Blood Urine Trace (Negative); Color Urine Yellow; Epithelial Cell Urine Auto 0-2 /hpf (0-2); Glucose Urine UA Negative (Negative); Ketones Urine Negative (Negative); Leukocyte Esterase Urine 3+ (Negative); Nitrite Urine Negative (Negative); Protein Urine Trace (Negative); RBC Urine Automated 0-2 /hpf (0-2); Specific Gravity Urine 1.006 (1.000-1.030); Urobilinogen Urine Negative (Negative); WBC Urine Automated >50 /hpf (0-5)
[2024-04-12 10:42] LABS: Basophils # (auto) 0.05 K/uL (0.00-0.20); Basophils % (auto) 0.4 %; Hematocrit (blood only) 40.6 % (37.0-47.0); Immature Granulocytes # (auto) 0.04 K/uL (0.01-0.20); Immature Granulocytes % (auto) 0.3 %; Lymphocytes # (auto) 0.58 K/uL (1.20-3.40); Lymphocytes % (auto) 4.6 %; Mean Corpuscular Hemoglobin 30.2 pg (25.0-34.0); Mean Corpuscular Volume 94.4 fL (80.0-100.0); Mean Platelet Volume 11.7 fL (9.4-12.4); Monocytes # (auto) 0.81 K/uL (0.11-0.59); Monocytes % (auto) 6.4 %; Neutrophils # (auto) 11.21 K/uL (1.40-6.50); Neutrophils % (auto) 88.3 %; Platelet Count 181 K/uL (130-400); RDW Coefficient of Variation 13.2 % (11.5-14.5); RDW Standard Deviation 45.8 fL (36.4-46.3); White Blood Count 12.69 K/ul (4.8-10.8)
[2024-04-12 10:57] LABS: Albumin Globulin Ratio 1.5 (0.9-2); Albumin Level 4.3 gm/dl (3.4-5.0); BUN Creatinine Ratio 26.3 (10-20); Bilirubin,Total 0.5 mg/dl (0.2-1.0); Calcium 9.2 mg/dl (8.6-10.3); Creatinine Clr Calc Pharmacy 62.8 ml/min; Globulin 2.9 gm/dl (2.5-4.0); Potassium 3.9 mmol/L (3.5-5.1); Total Protein 7.2 gm/dl (6.0-8.3)
[2024-04-12] MEDS: OPTIRAY 320 100ml IV ONE (11:15)
[2024-04-12] MEDS: cefTRIAXone SODIUM 2,000 MG/50 ML BAG IV STA (11:27)
--- NOTE | 2024-04-12 11:35 | CT Scan Report ---
CT cervical spine wo con CT DOSE: 2983.54 mGy.cm CLINICAL HISTORY: 88 years-old Female with Trauma. Acute neck injury status post trauma COMPARISON: Head CT same day, CT neck 12/16/2015 TECHNIQUE: Multiple axial CT images of the cervical spine were obtained without contrast. A dose low ering technique was utilized adhering to the principles of ALARA. FINDINGS: Demineralized appearance of the bones. [id number] multilevel facet arthrosis. Bilater al C7 cervical ribs. No acute cervical spine fracture or subluxation identified. The cervical soft ti ssues appear unremarkable. No pneumothorax. Intralobular septal thickening with groundglass densitie s which may represent a component of pulmonary edema. IMPRESSION: 1. No acute cervical spine fracture or subluxation. 2. Bilateral cervical ribs at C7. ACT 112: Negative or not required by law. The above report was generated using voice recognition software. It may contain grammatical, syntax o r spelling errors. Electronically signed by: Marcello Mendoza M.D. 04/12/2024 11:33 AM
--- NOTE | 2024-04-12 11:59 | CT Scan Report ---
CT OF THE HEAD WITHOUT CONTRAST CLINICAL HISTORY: Trauma COMPARISON STUDY: Head CT April 24, 2023. TECHNIQUE: Helical axial images of the head were obtained without IV contrast. Automated exposure con trol was utilized for the study. A dose lowering technique was utilized adhering to the principles o f ALARA. FINDINGS: No acute intracranial hemorrhage, midline shift or mass effect is present. The ventricular system is stable. White matter hypodensities are unchanged and suggest small vessel disease. The basa l cisterns are patent. No extra-axial collections are present. There are no findings to suggest acute dural sinus thrombosis or acute territorial infarct. No there are no calvarial fractures. Nasal cont usion is present. An acute nondisplaced left nasal bone fracture is better depicted on the facial bon e CT. This will be reported separately. There is also a small left forehead contusion. IMPRESSION: 1. No acute intracranial findings. 2. Forehead and facial contusions. No calvarial fractures. Acute nondisplaced left nasal bone fractur e, better depicted on the facial bone CT which will be reported separately. ACT 112: Negative or not required by law. Electronically signed by: Robb Lemos M.D. 04/12/2024 11:57 AM
--- NOTE | 2024-04-12 12:03 | CT Scan Report ---
MAXILLOFACIAL CT WITHOUT CONTRAST CLINICAL HISTORY: Trauma COMPARISON STUDY: Head CT April 24, 2023. TECHNIQUE: A maxillofacial CT was performed without IV contrast. Coronal and sagittal reformats were viewed. Automated exposure control was utilized for the study. A dose lowering technique was utiliz ed adhering to the principles of ALARA. FINDINGS: There is a nasal contusion. A left forehead contusion is present. There is an acute nondisp laced fracture of the left nasal bone. No displaced facial fractures are present. Orbital floors are intact. Globes are intact. No retrobulbar hematoma. Alignment of the temporomandibular joints is michelle omic. There is no skull base fracture. There are no fractures within visualized portions of the upper cervical spine. IMPRESSION: Nasal contusion with an acute nondisplaced left nasal bone fracture. No additional facial fractures. ACT 112: Negative or not required by law. Electronically signed by: Robb Lemos M.D. 04/12/2024 12:01 PM
--- NOTE | 2024-04-12 12:05 | XRay Report ---
XR foot RT min 3V routine CLINICAL HISTORY: big toe pain and ecchymosis COMPARISON: None FINDINGS: There is an acute comminuted mildly displaced intra-articular fracture within the base of the right first proximal phalanx. There is an acute mildly displaced fracture of the lateral right se cond metatarsal head. No additional acute fractures are present. Tarsometatarsal joints are intact. T here is moderate vascular calcification. There is a small plantar calcaneal spur. Moderate degenerati ve changes within multiple interphalangeal joints are incidentally noted. IMPRESSION: 1. Acute comminuted mildly displaced intra-articular fracture within the base of the right first prox imal phalanx. 2. Acute mildly displaced fracture of the lateral right second metatarsal head. ACT 112: Negative or not required by law. Electronically signed by: Robb Lemos M.D. 04/12/2024 12:04 PM
--- NOTE | 2024-04-12 12:29 | CT Scan Report ---
CHEST CT WITH CONTRAST HISTORY: Acute left-sided chest trauma Trauma, L chest wall hematoma TECHNIQUE: Multiaxial CT images of the chest were performed following the IV administration of 94 cc of Optiray. A dose lowering technique was utilized adhering to the principles of ALARA. COMPARISON: Chest and abdominal radiographs 05/31/2023 FINDINGS: No thyroid nodule or lymphadenopathy. Moderate cardiomegaly with trace pericardial effusion . Extensive coronary artery calcifications. There is atherosclerosis of the thoracic aorta without an eurysm or dissection. There is patency of the imaged great vessels. Main pulmonary artery measures 3. 7 cm transversely suggestive of pulmonary arterial hypertension. No pulmonary emboli identified. There is no pneumothorax, pleural effusion or airspace consolidation typical for pneumonia. Subsegmen nadir bibasilar atelectasis. No suspicious pulmonary nodules or masses identified. Mild mosaic attenuat ion/air trapping. Central airways appear patent. Colonic diverticulosis. 6 mm nonobstructing calculus of the superior pole left kidney. Small hiatal h ernia. Probable cyst of the left hepatic lobe measuring 9 mm. Left upper chest wall subcutaneous cont usion. No large hematoma identified. Chronic left proximal humeral fracture deformity. No definite ac gisela rib fracture is seen. IMPRESSION: 1. Small left chest wall contusion. No acute rib fracture or pneumothorax identified. 2. Cardiomegaly with evidence of pulmonary arterial hypertension. 3. Left nephrolithiasis.. 4. Chronic left proximal humeral fracture deformity. ACT 112: Negative or not required by law. Electronically signed by: Marcello Mendoza M.D. 04/12/2024 12:27 PM
--- NOTE | 2024-04-12 13:52 | History & Physical Report ---
Date of Service April 12, 2024 Assessment & Plan (1) Fall: Plan: Tripped while walking to bathroom, no concerning prodromal symptoms PT/OT, likely need for acute inpatient rehabilitation (2) Metatarsal bone fracture: Plan: Boot for mobilization Consult orthopedics (3) Fracture of phalanx of right great toe: (4) Nasal bone fracture: Plan: Conservative management (5) Abnormal finding on urinalysis: Plan: Follow up urine culture No specific urinary complaints Ceftriaxone given int he ER but no further an Plan VTE Prophylaxis - Lovenox 40mg SQ daily (start tomorrow night given significant ecchymosis and fall today) Diet - regular Disposition - admit to med/surg Admission and Anticipated Discharge Date Admission Date: April 12, 2024 History of Present Illness Chief Complaint: Fall Primary Care Provider: Alan Brewer MD Sury Masters is an 88 year old female who presents to the ER due to a fall earlier today. She reports walking from her hallway into her bathroom and tripping on a raised area in between the carpeted and hard wood floors. This was while trying to get an incontinent pad as she just had an episode of incontinence trying to get to the toilet which is not unusual for her. She reports she was at her baseline health but has mobility issues at baseline and shuffles a lot. She had a similar fall last year causing a humeral fracture and required inpatient rehabilitation after that stay. She fell head first and reports pain over her left breast, right foot/toes and nose. She denies any groin/hip pain, back pain. She denies any shortness of breath, chest pain or dizziness prior to falling. She gets a little lightheaded at baseline when she first gets up in the morning but otherwise does not have an issue with dizziness. She reports taking all of her medications this morning. Her urine is a little darker than usual but she denies any other acute urinary problems and no fever or chills. Allergies Allergy/AdvReac Type Severity Reaction Status Date / Time lisinopril AdvReac Unknown COUGH Verified 04/12/24 08:51 losartan AdvReac Unknown ABDOMINAL Verified 04/12/24 08:51 PAIN Home Medications Medication Instructions Recorded Confirmed Type aspirin 81 mg tablet 81 mg PO DAILY 01/12/19 04/12/24 History albuterol sulfate 90 mcg/actuation 2 puff inhalation Q4H PRN 10/10/22 04/12/24 Rx aerosol inhaler shortness of breath #18 grams acetaminophen 325 mg tablet 650 mg PO Q4H PRN Pain 05/10/23 04/12/24 History polyethylene glycol 3350 17 17 g PO DAILY PRN Constipation 05/10/23 04/12/24 History gram/dose oral powder (Miralax) nystatin 100,000 unit/gram topical 1 applic topical BID PRN 05/29/23 04/12/24 Rx powder Candidiasis #60 grams ascorbate calcium (vitamin C) 500 500 mg PO DAILY 06/21/23 04/12/24 History mg tablet ketoconazole 2 % topical cream 1 applic topical DAILY #60 grams 06/21/23 04/12/24 Rx cholecalciferol (vitamin D3) 125 125 mcg PO DAILY #30 caps 12/21/23 04/12/24 Rx mcg (5,000 unit) capsule ezetimibe 10 mg tablet 10 mg PO DAILY #90 tabs 12/21/23 04/12/24 Rx metoprolol succinate 100 mg 100 mg PO DAILY #90 tabs 12/21/23 04/12/24 Rx tablet,extended release 24 hr pravastatin 10 mg tablet 10 mg PO HS #90 tabs 12/21/23 04/12/24 Rx amlodipine 10 mg tablet 10 mg PO DAILY #90 tabs 04/10/24 04/12/24 Rx calcium carbonate 600 mg PO DAILY 04/10/24 04/12/24 History cranberry extract 500 mg tablet 500 mg PO BID 04/10/24 04/12/24 History alendronate 70 mg tablet 70 mg PO WK 04/12/24 04/12/24 History vit C 250 mg-vit E 90 mg-zinc 40 1 tab PO AMHS 04/12/24 04/12/24 History mg-copper 1 [id number] capsule (PreserVision AREDS-2) Past Med/Surg History Problem List (Updated 04/13/24 @ 07:16 by Kj Guzman MD) Abnormal finding on urinalysis Metatarsal bone fracture Fracture of phalanx of right great toe Nasal bone fracture Fall Morbid obesity UTI (urinary tract infection) Squamous cell carcinoma of right thigh Leukocytosis (Acute) Gait instability (Acute) Fall from standing (Acute) Closed left humeral fracture (Acute 04/24/23) From a fall Osteoporosis Carotid stenosis, right (Chronic) Nephrolithiasis (Acute) Low back pain (Acute) Hypertension (Chronic) Hyperlipidemia (Chronic) Carotid artery stenosis, asymptomatic (Acute) Asthma (Chronic) Allergic rhinitis (Acute) H/O carotid endarterectomy (Chronic) Macular degeneration Urge incontinence of urine History of cancer of vulva History of vitamin D deficiency Medical History Diabetes mellitus, 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 Vitamin D deficiency Surgical History History of vulvectomy partial rad vulvectomy 2012, neg margins History of hysterectomy TV[facility] History of cholecystectomy Family History Father Cardiac disorder Myocardial infarction Brother Diabetes Mother age 87 "old age" Denies family history of Ovarian cancer Prostate cancer Breast cancer Colorectal cancer Uterine cancer Social History Smoking Status: Former smoker Tobacco Type: Cigarettes Age Started Using Tobacco: 17; Age Quit Using Tobacco: 29; packs per day: 0.75; Second Hand Exposure: No; Do You Dip or Chew Tobacco: No; Hx Alcohol Use: Yes Alcohol type: beer and hard liquor Alcohol Intake Frequency: 2-3 x/Week Hx Substance Use: No Preferred Language: [place] Communication Ability: Effective Visual Impairment: Limited Hearing Ability: Normal Salon Receptionist Required: No Beliefs That Will Affect Care: None marital status: / Current Living Situation: Alone current occupational status: retired 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 [employer] How many Children do You have: 2 Feels Safe at Home: Yes Safety Concerns: Feels Safe At This Time Childhood Exposure to Second-Hand Smoke: Yes Diet: regular caffeine: Yes Dental Care, Regularly: Yes Physical Activity Frequency: Does not Exercise Seatbelt Use: always Sunscreen Use: No Assistive Devices: Cane Review of Systems Review of Systems: All systems reviewed & are unremarkable except as noted in HPI & below Physical Exam Constitutional: WD/WN, vitals as above Eyes: PERRL, conjunctivae normal, anicteric sclerae ENMT: Mouth: + dry oral mucous membranes Respiratory: normal respiratory effort, lungs clear to auscultation Cardiovascular: RRR, no murmur, no edema Gastrointestinal (Abdomen): normal bowel sounds, soft, nontender, no hepatosplenomegaly Musculoskeletal: right foot in surgical show, not removed Skin: + ecchymosis (superior to left breast, p mo-orbital) Neurologic: moves all extremities and awake; no focal motor deficits and not confused Speech / Cognition: normal speech Cranial Nerves: PERRL, EOM intact bilaterally, normal facial strength, able to rotate head bilaterally, able to elevate shoulders bilaterally, no nystagmus and symmetric palate elevation Psychiatric: A+Ox3, euthymic affect Genitourinary: no CVA tenderness Results & Data Results & Data Vital Signs (Past 12 Hours) Vital Signs Temp Pulse Pulse Resp BP BP Pulse Ox 04/12/24 13:27 77 16 160/78 H 98 04/12/24 13:00 77 04/12/24 08:47 58 L 04/12/24 08:30 36.7 C 65 18 164/74 H 98 O2 Del Method 04/12/24 13:27 04/12/24 13:00 04/12/24 08:47 04/12/24 08:30 Room Air Laboratory Results Abnormal lab results 04/12/24 04/12/24 Range/Units 09:50 10:17 WBC 12.69 H (4.8-10.8) K/ul Neut # (Auto) 11.21 H (1.40-6.50) K/uL Lymph # (Auto) 0.58 L (1.20-3.40) K/uL [place] # (Auto) 0.81 H (0.11-0.59) K/uL Creatinine 0.57 L (0.6-1.2) mg/dl BUN/Creatinine Ratio 26.3 H (10-20) Glucose 115 H (70-99(Fasting)) mg/dl Urine Appearance Cloudy A (Clear) Urine Protein Trace H (Negative) Urine Blood Trace H (Negative) Ur Leukocyte Esterase 3+ H (Negative) Urine WBC (Auto) >50 H (0-5) /hpf U Hyaline Cast (Auto) 3-5 H (0-2) /lpf Diagnostic Findings CT OF THE HEAD WITHOUT CONTRAST CLINICAL HISTORY: Trauma COMPARISON STUDY: Head CT April 24, 2023. TECHNIQUE: Helical axial images of the head were obtained without IV contrast. Automated exposure control was utilized for the study. A dose lowering technique was utilized adhering to the principles of ALARA. FINDINGS: No acute intracranial hemorrhage, midline shift or mass effect is present. The ventricular system is stable. White matter hypodensities are unchanged and suggest small vessel disease. The basal cisterns are patent. No extra-axial collections are present. There are no findings to suggest acute dural sinus thrombosis or acute territorial infarct. No there are no calvarial fractures. Nasal contusion is present. An acute nondisplaced left nasal bone fracture is better depicted on the facial bone CT. This will be reported separately. There is also a small left forehead contusion. IMPRESSION: 1. No acute intracranial findings. 2. Forehead and facial contusions. No calvarial fractures. Acute nondisplaced left nasal bone fracture, better depicted on the facial bone CT which will be reported separately. MAXILLOFACIAL CT WITHOUT CONTRAST CLINICAL HISTORY: Trauma COMPARISON STUDY: Head CT April 24, 2023. TECHNIQUE: A maxillofacial CT was performed without IV contrast. Coronal and sagittal reformats were viewed. Automated exposure control was utilized for the study. A dose lowering technique was utilized adhering to the principles of ALARA. FINDINGS: There is a nasal contusion. A left forehead contusion is present. There is an acute nondisplaced fracture of the left nasal bone. No displaced facial fractures are present. Orbital floors are intact. Globes are intact. No retrobulbar hematoma. Alignment of the temporomandibular joints is anatomic. There is no skull base fracture. There are no fractures within visualized port ions of the upper cervical spine. IMPRESSION: Nasal contusion with an acute nondisplaced left nasal bone fracture. No additional facial fractures. CT cervical spine wo con CT DOSE: 2983.54 mGy.cm CLINICAL HISTORY: 88 years-old Female with Trauma. Acute neck injury status post trauma COMPARISON: Head CT same day, CT neck 12/16/2015 TECHNIQUE: Multiple axial CT images of the cervical spine were obtained without contrast. A dose lowering technique was utilized adhering to the principles of ALARA. FINDINGS: Demineralized appearance of the bones. [id number]-cr-[id number] multilevel facet arthrosis. Bilateral C7 cervical ribs. No acute cervical spine fracture or subluxation identified. The cervical soft tissues appear unremarkable. No pneumothorax. Intralobular septal thickening with groundglass densities which may represent a component of pulmonary edema. IMPRESSION: 1. No acute cervical spine fracture or subluxation. 2. Bilateral cervical ribs at C7. CHEST CT WITH CONTRAST HISTORY: Acute left-sided chest trauma Trauma, L chest wall hematoma TECHNIQUE: Multiaxial CT images of the chest were performed following the IV administration of 94 cc of Optiray. A dose lowering technique was utilized adhering to the principles of ALARA. COMPARISON: Chest and abdominal radiographs 05/31/2023 FINDINGS: No thyroid nodule or lymphadenopathy. Moderate cardiomegaly with trace pericardial effusion. Extensive coronary artery calcifications. There is atherosclerosis of the thoracic aorta without aneurysm or dissection. There is patency of the imaged great vessels. Main pulmonary artery measures 3.7 cm transversely suggestive of pulmonary arterial hypertension. No pulmonary emboli identified. There is no pneumothorax, pleural effusion or airspace consolidation typical for pneumonia. Subsegmental bibasilar atelectasis. No suspicious pulmonary nodules or masses identified. Mild mosaic attenuation/air trapping. Central airways appear patent. Colonic diverticulosis. 6 mm nonobstructing calculus of the superior pole left kidney. Small hiatal hernia. Probable cyst of the left hepatic lobe measuring 9 mm. Left upper chest wall subcutaneous contusion. No large hematoma identified. Chronic left proximal humeral fracture deformity. No definite acute rib fracture is seen. IMPRESSION: 1. Small left chest wall contusion. No acute rib fracture or pneumothorax identified. 2. Cardiomegaly with evidence of pulmonary arterial hypertension. 3. Left nephrolithiasis.. 4. Chronic left proximal humeral fracture deformity. XR foot RT min 3V routine CLINICAL HISTORY: big toe pain and ecchymosis COMPARISON: None FINDINGS: There is an acute comminuted mildly displaced intra-articular fracture within the base of the right first proximal phalanx. There is an acute mildly displaced fracture of the lateral right second metatarsal head. No additional acute fractures are present. Tarsometatarsal joints are intact. There is moderate vascular calcification. There is a small plantar calcaneal spur. Moderate degenerative changes within multiple interphalangeal joints are incidentally noted. IMPRESSION: 1. Acute comminuted mildly displaced intra-articular fracture within the base of the right first proximal phalanx. 2. Acute mildly displaced fracture of the lateral right second metatarsal head. Medications Administered ER Medications Given: Ceftriaxone 2g IV ECG Rate (beats per minute): 65 Rhythm: normal sinus Findings: + 1st degree AV block and + PAC Comparison ECG Date: from (April 24, 2023) Change: the following changes noted (ST no longer depressed in inferior leads) Code Status & VTE Plan Code Status DNR, All treatment outside of a cardiac arrest VTE Prophylaxis Plan VTE Prophylaxis will be ordered: Yes PG Care Time/CCT Total # of Minutes Spent Total Time Spent with Patient: Total time spent is greater than 50% in coordination of care (as documented) at patient's floor/unit and/or counseling patient: Coding Level of Care Code 22495 INT INP/OBS CARE 2/55MIN Diagnoses Fall W19.XXXA Metatarsal bone fracture S92.309A Fracture of phalanx of right great toe S92.401A Nasal bone fracture S02.2XXA Abnormal finding on urinalysis R82.90
--- NOTE | 2024-04-12 14:44 | Emergency Department Note ---
Impression & Plan Closed fracture nasal bone, Fall, Acute UTI ED Provider Note CHIEF COMPLAINT: Fall, facial bruising, right foot pain HISTORY OF PRESENT ILLNESS: This 88-year-old female patient past medical history of morbid obesity, gait instability, osteoporosis, hypertension, hyperlipidemia, carotid stenosis and previous fall with left humeral fracture presents to the emergency department with complaints of facial contusion/bruising and right foot pain after a fall. Patient states she was getting up to go to the bathroom, realized that she was incontinent. Patient attempted to walk to her spare bedroom where she keeps her extra depends and stumbled on her slipper in the doorway. Her daughter noticed on the ring camera that she was "down." Patient states she was able to scoot over to her bed until her daughter got there. They contacted the ambulance for assistance. Patient denies losing consciousness. She has not had any vomiting. She does complain of some left-sided chest wall pain/bruising, her daughter believes she hit her chest on her cane while falling REVIEW OF SYSTEMS: A review of systems was performed with positives and pertinent negatives listed in the history of present illness. 10 systems were reviewed and are otherwise negative. ALLERGIES: see below MEDICATIONS: see below PMH: see below SOCIAL HISTORY: see below DDx: Closed head injury, facial fractures, intracranial hemorrhage, orthostatic syncope, gait imbalance, electrolyte abnormality, infectious etiology among others. PHYSICAL EXAM: Vital signs reviewed. General: Well-appearing 88-year-old female, in no significant distress. HEENT: No scleral icterus, PERRLA, neck supple. Contusion over the nasal bridge and inferior orbital region bilaterally. Dried blood in the nares bilaterally. Cardiovascular: Regular rate and rhythm, systolic ejection murmur Pulmonary: Clear to auscultation bilaterally, normal work of breathing. Abdomen: Soft, obese, nontender, nondistended, positive bowel sounds. Musculoskeletal: Atraumatic, no peripheral edema. Right foot with ecchymosis noted over the distal first metatarsal near the MTP. Pain with flexion of the foot. No obvious deformity. Neurologic: Patient awake alert and oriented x 3, speech is clear Skin: Warm, dry, no rash EMERGENCY DEPARTMENT COURSE/MDM: This patient was evaluated and appeared to be in no significant distress. IV access was obtained and laboratory work was drawn. The patient was placed on the cardiac care nurse noted to be in a normal sinus rhythm. Head CT was performed and reveals no evidence of acute intracranial abnormality, nondisplaced left nasal bone fracture is noted. Cervical spine CT reveals no evidence of acute fracture or subluxation, CT of the chest reveals a left chest wall contusion without rib fracture or pneumothorax. There is evidence of cardiomegaly with pulmonary arterial hypertension. X-ray of the right foot indicates a fracture of the proximal first phalanges at the MTP as well as a second metatarsal fracture. Patient was placed in a walking boot. Laboratory work is fairly reassuring however the WBC is slightly elevated at 12.6 and UA is indicative of infection. Patient was medicated with IV ceftriaxone. Patient was discussed with the hospitalist service for admission and further management. Patient and family are made aware of the plan and agreed. MONITORING: An order for cardiac monitoring was placed and the patient is noted to be in a normal sinus rhythm at 77 beats per minute. RADIOLOGY: CT imaging of the head IMPRESSION: 1. No acute intracranial findings. 2. Forehead and facial contusions. No calvarial fractures. Acute nondisplaced left nasal bone fracture, better depicted on the facial bone CT which will be reported separately. CT imaging of the facial bones: IMPRESSION: Nasal contusion with an acute nondisplaced left nasal bone fracture. No additional facial fractures. CT imaging of the cervical spine: IMPRESSION: 1. No acute cervical spine fracture or subluxation. 2. Bilateral cervical ribs at C7. CT imaging of the chest IMPRESSION: 1. Small left chest wall contusion. No acute rib fracture or pneumothorax identified. 2. Cardiomegaly with evidence of pulmonary arterial hypertension. 3. Left nephrolithiasis.. 4. Chronic left proximal humeral fracture deformity. X-ray of the right foot to my interpretation reveals evidence of first proximal phalanges fracture at the MTP, second metatarsal fracture distally. Otherwise defer to radiology's over read. EKG: To my interpretation reveals a sinus rhythm with a first-degree AV block at 65 bpm. PAC noted, QTc of 472. DISPOSITION: Admission Past Med/Surg History Problem List (Updated 04/13/24 @ 14:21 by Danika Vasquez MD) Acute UTI (Acute) Fall (Acute) Closed fracture nasal bone (Acute) Ambulatory dysfunction Abnormal finding on urinalysis Metatarsal bone fracture Fracture of phalanx of right great toe Nasal bone fracture Morbid obesity Leukocytosis (Acute) Gait instability (Acute) Fall from standing (Acute) Osteoporosis Carotid stenosis, right (Chronic) Nephrolithiasis (Acute) Low back pain (Acute) Hypertension (Chronic) Hyperlipidemia (Chronic) Asthma (Chronic) Allergic rhinitis (Acute) H/O carotid endarterectomy (Chronic) Macular degeneration Urge incontinence of urine History of cancer of vulva History of vitamin D deficiency Medical History Squamous cell carcinoma of right thigh Closed left humeral fracture (04/24/23) From a fall Diabetes mellitus, 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 Vitamin D deficiency Surgical History History of vulvectomy partial rad vulvectomy 2011, neg margins History of hysterectomy TVH History of cholecystectomy Family History Father Cardiac disorder Myocardial infarction Brother Diabetes Mother age 87 "old age" Denies family history of Ovarian cancer Prostate cancer Breast cancer Colorectal cancer Uterine cancer Social History Smoking Status: Former smoker Tobacco Type: Cigarettes Age Started Using Tobacco: 17; Age Quit Using Tobacco: 29; packs per day: 0.75; Second Hand Exposure: No; Do You Dip or Chew Tobacco: No; Hx Alcohol Use: Yes Alcohol type: beer and hard liquor Alcohol Intake Frequency: 2-3 x/Week Hx Substance Use: No Preferred Language: Telugu Communication Ability: Effective Visual Impairment: Limited Hearing Ability: Normal Labor Relations Supervisor Required: No Beliefs That Will Affect Care: None marital status: / Current Living Situation: Alone current occupational status: retired 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 [employer] How many Children do You have: 2 Feels Safe at Home: Yes Safety Concerns: Feels Safe At This Time Childhood Exposure to Second-Hand Smoke: Yes Diet: regular caffeine: Yes Dental Care, Regularly: Yes Physical Activity Frequency: Does not Exercise Seatbelt Use: always Sunscreen Use: No Assistive Devices: Cane Allergies Allergies Allergy/AdvReac Type Severity Reaction Status Date / Time lisinopril AdvReac Unknown COUGH Verified 04/12/24 08:51 losartan AdvReac Unknown ABDOMINAL Verified 04/12/24 08:51 PAIN Home Meds Home Medications Medication Instructions Recorded Confirmed aspirin 81 mg tablet 81 mg PO DAILY 01/12/19 04/12/24 acetaminophen 325 mg tablet 650 mg PO Q4H PRN Pain 05/10/23 04/12/24 polyethylene glycol 3350 17 17 g PO DAILY PRN Constipation 05/10/23 04/12/24 gram/dose oral powder (Miralax) ascorbate calcium (vitamin C) 500 500 mg PO DAILY 06/21/23 04/12/24 mg tablet calcium carbonate 600 mg PO DAILY 04/10/24 04/12/24 cranberry extract 500 mg tablet 500 mg PO BID 04/10/24 04/12/24 alendronate 70 mg tablet 70 mg PO WK 04/12/24 04/12/24 vit C 250 mg-vit E 90 mg-zinc 40 1 tab PO AMHS 04/12/24 04/12/24 mg-copper 1 on-rvniyv-eecbdn capsule (PreserVision AREDS-2) Previous Rx's Medication Instructions Recorded albuterol sulfate 90 mcg/actuation 2 puff inhalation Q4H PRN 10/10/22 aerosol inhaler shortness of breath #18 grams nystatin 100,000 unit/gram topical 1 applic topical BID PRN 05/29/23 powder Candidiasis #60 grams ketoconazole 2 % topical cream 1 applic topical DAILY #60 grams 06/21/23 cholecalciferol (vitamin D3) 125 125 mcg PO DAILY #30 caps 12/21/23 mcg (5,000 unit) capsule ezetimibe 10 mg tablet 10 mg PO DAILY #90 tabs 12/21/23 metoprolol succinate 100 mg 100 mg PO DAILY #90 tabs 12/21/23 tablet,extended release 24 hr pravastatin 10 mg tablet 10 mg PO HS #90 tabs 12/21/23 amlodipine 10 mg tablet 10 mg PO DAILY #90 tabs 04/10/24 Results & Data (ED) Vital Signs Vital Signs - 24 hr 04/12/24 08:30 04/12/24 08:47 04/12/24 13:00 Temperature 36.7 C Temperature Source Temporal Artery Scan Pulse Rate 65 58 L 77 Pulse Rate [Left Finger] Respiratory Rate 18 Respiratory Effort / Characteristics Non-Labored Respiratory Depth Normal Respiratory Pattern Regular Blood Pressure 164/74 H Blood Pressure [Left Arm] Blood Pressure Mean 104 Blood Pressure Mean [Left Arm] Blood Pressure Position [Left Arm] Pulse Oximetry 98 Oxygen Delivery Method Room Air Sepsis Recent Fever Within 48 Hours No Sepsis New/Unexplained Change in Mental Status N/A Sepsis Action Taken by Nursing No Action Required 04/12/24 13:27 Temperature Temperature Source Pulse Rate Pulse Rate [Left Finger] 77 Respiratory Rate 16 Respiratory Effort / Characteristics Respiratory Depth Respiratory Pattern Blood Pressure Blood Pressure [Left Arm] 160/78 H Blood Pressure Mean Blood Pressure Mean [Left Arm] 105 Blood Pressure Position [Left Arm] Sitting Pulse Oximetry 98 Oxygen Delivery Method Sepsis Recent Fever Within 48 Hours Sepsis New/Unexplained Change in Mental Status Sepsis Action Taken by Halfway Medications Current Medication List: was personally reviewed by me Laboratory Data Attestation: I reviewed the patient's lab results. 04/12/24 10:17 04/12/24 10:17 Lab Results 04/12/24 04/12/24 Range/Units 09:50 10:17 WBC 12.69 H (4.8-10.8) K/ul RBC 4.30 (4.20-5.40) M/uL Hgb 13.0 (12.0-16.0) g/dl Hct 40.6 (37.0-47.0) % MCV 94.4 (80.0-100.0) fL MCH 30.2 (25.0-34.0) pg MCHC 32.0 (32.0-36.0) g/dL RDW Std Deviation 45.8 (36.4-46.3) fL RDW Coeff of Kassandra 13.2 (11.5-14.5) % Plt Count 181 (130-400) K/uL MPV 11.7 (9.4-12.4) fL Immature Gran % (Auto) 0.3 % Neut % (Auto) 88.3 % Lymph % (Auto) 4.6 % Waller % (Auto) 6.4 % Eos % (Auto) 0.0 % Baso % (Auto) 0.4 % Neut # (Auto) 11.21 H (1.40-6.50) K/uL Lymph # (Auto) 0.58 L (1.20-3.40) K/uL Waller # (Auto) 0.81 H (0.11-0.59) K/uL Eos # (Auto) 0.00 (0.00-0.50) K/uL Baso # (Auto) 0.05 (0.00-0.20) K/uL Immature Gran # (Auto) 0.04 (0.01-0.20) K/uL Sodium 142 (136-145) mmol/L Potassium 3.9 (3.5-5.1) mmol/L Chloride 107 (98-107) mmol/L Carbon Dioxide 29 (21-32) mmol/L Anion Gap 6 (3-11) BUN 15 (6-23) mg/dl Creatinine 0.57 L (0.6-1.2) mg/dl Est Cr Clr Drug Dosing 62.8 ml/min eGFR 87.35 BUN/Creatinine Ratio 26.3 H (10-20) Glucose 115 H (70-99(Fasting)) mg/dl Calcium 9.2 (8.6-10.3) mg/dl Total Bilirubin 0.5 (0.2-1.0) mg/dl AST 20 (13-39) U/L ALT 16 (7-52) U/L Alkaline Phosphatase 88 (34-104) U/L Total Protein 7.2 (6.0-8.3) gm/dl Albumin 4.3 (3.4-5.0) gm/dl Globulin 2.9 (2.5-4.0) gm/dl Albumin/Globulin Ratio 1.5 (0.9-2) Urine Color Yellow Urine Appearance Cloudy A (Clear) Urine pH 6.0 (4.5-7.5) Ur Specific [place] 1.006 (1.000-1.030) Urine Protein Trace H (Negative) Urine Glucose (UA) Negative (Negative) Urine Ketones Negative (Negative) Urine Blood Trace H (Negative) Urine Nitrite Negative (Negative) Urine Bilirubin Negative (Negative) Urine Urobilinogen Negative (Negative) Ur Leukocyte Esterase 3+ H (Negative) Urine WBC (Auto) >50 H (0-5) /hpf Urine RBC (Auto) 0-2 (0-2) /hpf U Hyaline Cast (Auto) 3-5 H (0-2) /lpf U Epithel Cells (Auto) 0-2 (0-2) /hpf Urine Bacteria (Auto) None Seen (None Seen) Administered Medications Acetaminophen (Acetaminophen 500 Mg Tab) 1,000 mg PO TID ZACKARY Stop: 05/13/24 08:59 Last Admin: 04/13/24 07:11 Dose: 1,000 mg Documented By: LOVE Amlodipine Besylate (Amlodipine Besylate 5 Mg Tab) 10 mg PO DAILY ZACKARY Stop: 05/13/24 08:59 Last Admin: 04/13/24 07:13 Dose: 10 mg Documented By: LOVE Calcium Carbonate (Calcium Carbonate 1250mg Tab) 1 tab PO DAILY ZACKARY Stop: 05/13/24 08:59 Last Admin: 04/13/24 07:13 Dose: 1 tab Documented By: LOVE Ezetimibe (Ezetimibe 10 Mg Tab) 10 mg PO DAILY ZCAKARY Stop: 05/13/24 08:59 Last Admin: 04/13/24 07:12 Dose: 10 mg Documented By: LOVE Metoprolol Succinate (Metoprolol Succ 50mg Ext Rel Tab) 100 mg PO DAILY ZACKARY Stop: 05/12/24 19:59 Last Admin: 04/13/24 07:12 Dose: 100 mg Documented By: Admin: 04/12/24 20:43 Dose: 100 mg Documented By: TIMOTHY Pravastatin Sodium (Pravastatin Sod 10 Mg Tab) 10 mg PO HS [facility] Stop: 05/12/24 20:59 Last Admin: 04/12/24 20:43 Dose: 10 mg Documented By: TIMOTHY Vitamin D (Cholecalciferol 125 Mcg (5,000 Units) Tab) 125 mcg PO QAM ZACKARY Stop: 05/13/24 08:59 Last Admin: 04/13/24 07:12 Dose: 125 mcg Documented By: LOVE Discontinued Medications Acetaminophen (Acetaminophen 500 Mg Tab) 1,000 mg PO Q8H PRN PRN Reason: pain/fever Stop: 05/12/24 16:36 Last Admin: 04/12/24 21:03 Dose: 1,000 mg Documented By: TIMOTHY Hydromorphone HCl (Hydromorphone Inj 0.5 Mg/0.5 Ml Syr) 0.25 mg IV NOW STA Stop: 04/12/24 22:32 Last Admin: 04/12/24 22:34 Dose: 0.25 mg Documented By: TIMOTHY Ceftriaxone Sodium (Rocephin) 2,000 mg in 50 mls @ 100 mls/hr IV NOW STA Stop: 04/12/24 10:54 Last Infusion: 04/12/24 12:00 Dose: Infused Documented By: Admin: 04/12/24 11:27 Dose: 100 mls/hr Documented By: JOEL Ioversol (Optiray 320 100ml) 94 ml IV ONCE ONE Stop: 04/12/24 11:16 Last Admin: 04/12/24 11:15 Dose: 94 ml Documented By: HANNA Tramadol HCl (Tramadol Hcl 50 Mg Tablet) 50 mg PO Q4H PRN PRN Reason: SEVERE Pain (7,8,9,10) Stop: 05/12/24 22:43 Last Admin: 04/13/24 07:11 Dose: 50 mg Documented By: LOVE Imaging Data Radiologist's Impression: Cervical Spine CT 04/12/24 09:10 CT cervical spine wo con CT DOSE: 2983.54 mGy.cm CLINICAL HISTORY: 88 years-old Female with Trauma. Acute neck injury status post trauma COMPARISON: Head CT same day, CT neck 12/16/2015 TECHNIQUE: Multiple axial CT images of the cervical spine were obtained without contrast. A dose lowering technique was utilized adhering to the principles of ALARA. FINDINGS: Demineralized appearance of the bones. Kikn-yj-bwagvige multilevel facet arthrosis. Bilateral C7 cervical ribs. No acute cervical spine fracture or subluxation identified. The cervical soft tissues appear unremarkable. No pneumothorax. Intralobular septal thickening with groundglass densities which may represent a component of pulmonary edema. IMPRESSION: 1. No acute cervical spine fracture or subluxation. 2. Bilateral cervical ribs at C7. ACT 112: Negative or not required by law. The above report was generated using voice recognition software. It may contain grammatical, syntax or spelling errors. Electronically signed by: Marcello Mendoza M.D. 04/12/2024 11:[address] 04/12/24 09:[address] WITH CONTRAST HISTORY: Acute left-sided chest trauma Trauma, L chest wall hematoma TECHNIQUE: Multiaxial CT images of the chest were performed following the IV administration of 94 cc of Optiray. A dose lowering technique was utilized adhering to the principles of ALARA. COMPARISON: Chest and abdominal radiographs 05/31/2023 FINDINGS: No thyroid nodule or lymphadenopathy. Moderate cardiomegaly with trace pericardial effusion. Extensive coronary artery calcifications. There is atherosclerosis of the thoracic aorta without aneurysm or dissection. There is patency of the imaged great vessels. Main pulmonary artery measures 3.7 cm transversely suggestive of pulmonary arterial hypertension. No pulmonary emboli identified. There is no pneumothorax, pleural effusion or airspace consolidation typical for pneumonia. Subsegmental bibasilar atelectasis. No suspicious pulmonary nodules or masses identified. Mild mosaic attenuation/air trapping. Central airways appear patent. Colonic diverticulosis. 6 mm nonobstructing calculus of the superior pole left kidney. Small hiatal hernia. Probable cyst of the left hepatic lobe measuring 9 mm. Left upper chest wall subcutaneous contusion. No large hematoma identified. Chronic left proximal humeral fracture deformity. No definite acute rib fracture is seen. IMPRESSION: 1. Small left chest wall contusion. No acute rib fracture or pneumothorax identified. 2. Cardiomegaly with evidence of pulmonary arterial hypertension. 3. Left nephrolithiasis.. 4. Chronic left proximal humeral fracture deformity. ACT 112: Negative or not required by law. Electronically signed by: Marcello Mendoza M.D. 04/12/2024 12:[address] 04/12/24 09:[address] WITHOUT CONTRAST CLINICAL HISTORY: Trauma COMPARISON STUDY: Head CT April 24, 2023. TECHNIQUE: A maxillofacial CT was performed without IV contrast. Coronal and sagittal reformats were viewed. Automated exposure control was utilized for the study. A dose lowering technique was utilized adhering to the principles of ALARA. FINDINGS: There is a nasal contusion. A left forehead contusion is present. There is an acute nondisplaced fracture of the left nasal bone. No displaced facial fractures are present. Orbital floors are intact. Globes are intact. No retrobulbar hematoma. Alignment of the temporomandibular joints is anatomic. There is no skull base fracture. There are no fractures within visualized portions of the upper cervical spine. IMPRESSION: Nasal contusion with an acute nondisplaced left nasal bone fracture. No additional facial fractures. ACT 112: Negative or not required by law. Electronically signed by: Robb Lemos M.D. 04/12/2024 12:[address] 04/12/24 09:10 CT OF THE HEAD WITHOUT CONTRAST CLINICAL HISTORY: Trauma COMPARISON STUDY: Head CT April 24, 2023. TECHNIQUE: Helical axial images of the head were obtained without IV contrast. Automated exposure control was utilized for the study. A dose lowering technique was utilized adhering to the principles of ALARA. FINDINGS: No acute intracranial hemorrhage, midline shift or mass effect is present. The ventricular system is stable. White matter hypodensities are unchanged and suggest small vessel disease. The basal cisterns are patent. No extra-axial collections are present. There are no findings to suggest acute dural sinus thrombosis or acute territorial infarct. No there are no calvarial fractures. Nasal contusion is present. An acute nondisplaced left nasal bone fracture is better depicted on the facial bone CT. This will be reported separately. There is also a small left forehead contusion. IMPRESSION: 1. No acute intracranial findings. 2. Forehead and facial contusions. No calvarial fractures. Acute nondisplaced left nasal bone fracture, better depicted on the facial bone CT which will be reported separately. ACT 112: Negative or not required by law. Electronically signed by: Robb Lemos M.D. 04/12/2024 11:57 AM Foot X-Ray 04/12/24 09:21 XR foot RT min 3V routine CLINICAL HISTORY: big toe pain and ecchymosis COMPARISON: None FINDINGS: There is an acute comminuted mildly displaced intra-articular fracture within the base of the right first proximal phalanx. There is an acute mildly displaced fracture of the lateral right second metatarsal head. No additional acute fractures are present. Tarsometatarsal joints are intact. There is moderate vascular calcification. There is a small plantar calcaneal spur. Moderate degenerative changes within multiple interphalangeal joints are incidentally noted. IMPRESSION: 1. Acute comminuted mildly displaced intra-articular fracture within the base of the right first proximal phalanx. 2. Acute mildly displaced fracture of the lateral right second metatarsal head. ACT 112: Negative or not required by law. Electronically signed by: Robb Lemos M.D. 04/12/2024 12:04 PM Discharge Plan Visit Data Chief Complaint: Fall Stated Complaint: FELL, NOSE/BIG TOE INJURY/PAIN ED Provider: Danika Vasquez Discharge Problem: Closed fracture nasal bone, Fall, Acute UTI Patient Disposition: Admitted As Inpatient Discharge Instructions Interventions: ED Discharge Assessment Last Done: 04/12/24 16:21 Discharge Problem: Closed fracture nasal bone Qualifiers: Encounter type: initial encounter Qualified Code(s): S02.2XXA - Fracture of nasal bones, initial encounter for closed fracture Fall Qualifiers: Encounter type: initial encounter Qualified Code(s): W19.XXXA - Unspecified fall, initial encounter
[2024-04-12] MEDS ORDERED: ACETAMINOPHEN 325 MG TAB PO PRN (16:37)
--- NOTE | 2024-04-12 18:02 | Electrocardiogram Report ---
Test Reason : Blood Pressure : */* mmHG Vent. Rate : 65 BPM Atrial Rate : 65 BPM P-R Int : 220 ms QRS Dur : 74 ms QT Int : 454 ms P-R-T Axes : 70 46 7 degrees QTcB Int : 472 ms Sinus rhythm with 1st degree A-V block with Premature atrial complexes Low voltage QRS Borderline ECG When compared with ECG of 24-Apr-2023 20:42, Premature atrial complexes are now Present DC interval has increased Minimal criteria for Inferior infarct are no longer Present ST no longer depressed in Inferior leads Confirmed by Alan Manning ([id number]) on 04/12/2024 6:02:08 PM Referred By: REFERRED SELF Confirmed By: Alan Manning
[2024-04-12] MEDS: METOPROLOL SUCC 50MG EXT REL TAB PO SCH (20:43)
[2024-04-12] MEDS: PRAVASTATIN SOD 10 MG TAB PO SCH (20:43)
[2024-04-12] MEDS ORDERED: NON-FORMULARY MEDICATION (Vit C,E-Zn-Coppr-Lutein-Zeaxan [Preservision Areds-2] 250-90-40- PO SCH (21:00)
[2024-04-12] MEDS: ACETAMINOPHEN 500 MG TAB PO PRN (21:03)
[2024-04-12] MEDS: HYDROmorphone INJ 0.5 MG/0.5 ML SYR IV STA (22:34)
[2024-04-12] MEDS ORDERED: traMADol HCL 50 MG TABLET PO PRN (22:44)
[2024-04-13] MEDS: traMADol HCL 50 MG TABLET PO PRN (07:11)
[2024-04-13] MEDS: ACETAMINOPHEN 500 MG TAB PO SCH (07:11)
[2024-04-13] MEDS: EZETIMIBE 10 MG TAB PO SCH (07:12)
[2024-04-13] MEDS: CHOLECALCIFEROL 125 MCG (5,000 UNITS) TAB PO SCH (07:12)
[2024-04-13] MEDS: CALCIUM CARBONATE 1250MG TAB PO SCH (07:13)
[2024-04-13] MEDS: amLODIPine BESYLATE 5 MG TAB PO SCH (07:13)
[2024-04-13] MEDS ORDERED: HYDROmorphone INJ 0.5 MG/0.5 ML SYR IV PRN (08:37)
[2024-04-13] MEDS ORDERED: ASPIRIN 81 MG ECTAB PO SCH (09:00)
[2024-04-13] MEDS ORDERED: oxyCODONE HCL IR 5 MG TAB (IMMEDIATE RELEASE) PO PRN (10:46)
--- NOTE | 2024-04-13 11:29 | Hospitalist Progress Note ---
Date of Service April 13, 2024 Assessment & Plan (1) Fall from standing: Plan: Tripped while walking to bathroom, no concerning prodromal symptoms PT/OT, likely need for acute inpatient rehabilitation (2) Metatarsal bone fracture: Plan: Boot for mobilization Pain management: Tylenol 1000mg TID scheduled, oxycodone 5mg q4hrs PRN, Dilaudid IV 0.25mg q6h PRN f/u orthopedics recs (3) Fracture of phalanx of right great toe: Plan: as above (4) Nasal bone fracture: Plan: Conservative management Pain control as above (5) Abnormal finding on urinalysis: Plan: Follow up urine culture No specific urinary complaints Ceftriaxone given int he ER but no further abx Plan VTE Prophylaxis - Lovenox 40mg SQ daily (start tomorrow night given significant ecchymosis and fall today) Diet - regular Disposition - admit to med/surg Admission and Anticipated Discharge Date Admission Date: April 12, 2024 Supervising Physician Co-Signing Physician Notes Attending attestation Pt seen and examined in concert with Dr. Escalona. In agreement with the documented findings as noted in the resident documentation with any exceptions or additions as noted here. Resting in bed with pain well controlled with postop shoe and current regimen. On examination, S1/S2 nl RRR no MCG. CTAB. Abd NT/ND BS+ve Fall from standing with multiple fractures - ortho consult - PT/OT - Continue pain management as noted. Abnormal UA - UCx pending s/p 1 dose abx in ED. Else see resident documentation as noted. Subjective Patient seen and evaluated at bedside this morning. No acute events overnight. Pt is an 88 yo female who presented after mechanical fall from standing height found to have multiple fractures. Fracture of R first phalanx, R lateral second metatarsal head, left nasal bone fracture. Today complaining of significant foot pain not controlled on current pain regimen. Otherwise, no acute complaints. Mild leukocytosis in setting of acute fracture. Review of Systems Review of Systems: reviewed, per HPI Physical Exam Physical Exam: Constitutional: well-appearing, no acute distress HEENT: Bruising to nasal bridge and under eyes, no conjunctival injection CV: regular rhythm, no murmur appreciated, extremities well-perfused, no LE edema Resp: CTABL, no wheezes/rales/rhonchi appreciated, no increased work of breathing GI: soft, nondistended, nontender, BS normoactive MSK: no gross deformities appreciated Skin: warm, dry, no rash appreciated Neuro: alert, oriented, no focal neurologic deficit appreciated Results & Data Results & Data Vital Signs (Past 12 Hours) Vital Signs Temp Pulse Resp BP Pulse Ox O2 Del Method 04/13/24 07:07 36.6 C 62 18 106/72 92 Room Air 04/13/24 07:00 Room Air 04/13/24 00:22 61 150/69 H Resident Activity Tracking Resident Involvement: Resident Care Provided Care Provided: Adult Hospital Medicine (1) Fall from standing Encounter type: initial encounter Qualified Code(s): W19.XXXA - Unspecified fall, initial encounter (2) Metatarsal bone fracture Encounter type: initial encounter Fracture alignment: displaced Fracture type: closed Laterality: right Metatarsal bone: second Qualified Code(s): S92.321A - Displaced fracture of second metatarsal bone, right foot, initial encounter for closed fracture (3) Fracture of phalanx of right great toe Encounter type: initial encounter Fracture alignment: displaced Fracture type: closed Phalanx: proximal Qualified Code(s): S92.411A - Displaced fracture of proximal phalanx of right great toe, initial encounter for closed fracture (4) Nasal bone fracture Encounter type: initial encounter Fracture type: closed Qualified Code(s): S02.2XXA - Fracture of nasal bones, initial encounter for closed fracture
[2024-04-13] MEDS: ENOXAPARIN INJ 40 MG/0.4 ML SYR SQ SCH (20:04)
--- NOTE | 2024-04-14 07:12 | Orthopedic Consultation ---
Date of Service April 14, 2024 Assessment & Plan (1) Metatarsal bone fracture: Fortunately this can be treated nonoperatively. Will keep her in the hard soled shoe. She can be weightbearing as tolerated. She can follow-up with orthopedics in 3 to 4 weeks for repeat x-rays and to see how she is doing. Ple ase call if you need any further assistance. History of Present Illness Reason for Consultation: Right foot fracture. Requesting Physician: . Attending Physician: Alan Rodriguez MD Sury Masters is an 88 year old female who presents to the ER due to a fall earlier today. She reports walking from her hallway into her bathroom and tripping on a raised area in between the carpeted and hard wood floors. This was while trying to get an incontinent pad as she just had an episode of incontinence trying to get to the toilet which is not unusual for her. She reports she was at her baseline health but has mobility issues at baseline and shuffles a lot. She had a similar fall last year causing a humeral fracture and required inpatient rehabilitation after that stay. She fell head first and reports pain over her left breast, right foot/toes and nose. She denies any groin/hip pain, back pain. She denies any shortness of breath, chest pain or dizziness prior to falling. She gets a little lightheaded at baseline when she first gets up in the morning but otherwise does not have an issue with dizziness. She reports taking all of her medications this morning. X-rays of her right foot show fractures of the great toe and the second toe. Orthopedics was consulted to evaluate and treat. Allergies Allergy/AdvReac Type Severity Reaction Status Date / Time lisinopril AdvReac Unknown COUGH Verified 04/12/24 08:51 losartan AdvReac Unknown ABDOMINAL Verified 04/12/24 08:51 PAIN Home Medications Medication Instructions Recorded Confirmed Type aspirin 81 mg tablet 81 mg PO DAILY 01/12/19 04/12/24 History albuterol sulfate 90 mcg/actuation 2 puff inhalation Q4H PRN 10/10/22 04/12/24 Rx aerosol inhaler shortness of breath #18 grams acetaminophen 325 mg tablet 650 mg PO Q4H PRN Pain 05/10/23 04/12/24 History polyethylene glycol 3350 17 17 g PO DAILY PRN Constipation 05/10/23 04/12/24 History gram/dose oral powder (Miralax) nystatin 100,000 unit/gram topical 1 applic topical BID PRN 05/29/23 04/12/24 Rx powder Candidiasis #60 grams ascorbate calcium (vitamin C) 500 500 mg PO DAILY 06/21/23 04/12/24 History mg tablet ketoconazole 2 % topical cream 1 applic topical DAILY #60 grams 06/21/23 04/12/24 Rx cholecalciferol (vitamin D3) 125 125 mcg PO DAILY #30 caps 12/21/23 04/12/24 Rx mcg (5,000 unit) capsule ezetimibe 10 mg tablet 10 mg PO DAILY #90 tabs 12/21/23 04/12/24 Rx metoprolol succinate 100 mg 100 mg PO DAILY #90 tabs 12/21/23 04/12/24 Rx tablet,extended release 24 hr pravastatin 10 mg tablet 10 mg PO HS #90 tabs 12/21/23 04/12/24 Rx amlodipine 10 mg tablet 10 mg PO DAILY #90 tabs 04/10/24 04/12/24 Rx calcium carbonate 600 mg PO DAILY 04/10/24 04/12/24 History cranberry extract 500 mg tablet 500 mg PO BID 04/10/24 04/12/24 History alendronate 70 mg tablet 70 mg PO WK 04/12/24 04/12/24 History vit C 250 mg-vit E 90 mg-zinc 40 1 tab PO AMHS 04/12/24 04/12/24 History mg-copper 1 [id number] capsule (PreserVision AREDS-2) Past Med/Surg History Problem List Acute UTI (Acute) Fall (Acute) Closed fracture nasal bone (Acute) Ambulatory dysfunction Abnormal finding on urinalysis Metatarsal bone fracture Fracture of phalanx of right great toe Nasal bone fracture Morbid obesity Leukocytosis (Acute) Gait instability (Acute) Fall from standing (Acute) Osteoporosis Carotid stenosis, right (Chronic) Nephrolithiasis (Acute) Low back pain (Acute) Hypertension (Chronic) Hyperlipidemia (Chronic) Asthma (Chronic) Allergic rhinitis (Acute) H/O carotid endarterectomy (Chronic) Macular degeneration Urge incontinence of urine History of cancer of vulva History of vitamin D deficiency Medical History Squamous cell carcinoma of right thigh Closed left humeral fracture (04/24/23) From a fall Diabetes mellitus, 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 Vitamin D deficiency Surgical History History of vulvectomy partial rad vulvectomy 2011, neg margins History of hysterectomy [facility] History of cholecystectomy Family History Father Cardiac disorder Myocardial infarction Brother Diabetes Mother age 87 "old age" Denies family history of Ovarian cancer Prostate cancer Breast cancer Colorectal cancer Uterine cancer Social History Smoking Status: Former smoker Tobacco Type: Cigarettes Age Started Using Tobacco: 17; Age Quit Using Tobacco: 29; packs per day: 0.75; Second Hand Exposure: No; Do You Dip or Chew Tobacco: No; Hx Alcohol Use: Yes Alcohol type: beer and hard liquor Alcohol Intake Frequency: 2-3 x/Week Hx Substance Use: No Preferred Language: Hungarian Communication Ability: Effective Visual Impairment: Limited Hearing Ability: Normal Painting Technician Required: No Beliefs That Will Affect Care: None marital status: / Current Living Situation: Alone current occupational status: retired 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 Physical Exam On physical exam of the right foot, there is some ecchymosis around the great toe. There is no deformity. She already has a [place] shoe in place.. Constitutional WD/WN, vitals as above Eyes PERRL, conjunctivae normal, anicteric sclerae ENMT external ear and nose normal, oropharynx normal Neck trachea midline, no thyromegaly Respiratory normal respiratory effort Cardiovascular RRR, no murmur, no edema Gastrointestinal (Abdomen) normal bowel sounds, soft, nontender, no hepatosplenomegaly Psychiatric A+Ox3, euthymic affect Results & Data Results & Data Laboratory Results . Diagnostic Findings X-rays of the right foot do show a small fracture at the base of the proximal phalanx of the right great toe. There is also a small fracture off the second metatarsal head.. PG Care Time/CCT Total # of Minutes Spent Total Time Spent with Patient: Total time spent is greater than 50% in coordination of care (as documented) at patient's floor/unit and/or counseling patient: Coding Level of Care Code 93607 IN/OBS CONSULT LVL 4,60M Diagnoses Closed displaced fracture of second metatarsal bone of right foot, initial encounter S92.321A Encounter type: initial encounter Metatarsal bone: second Fracture type: closed Fracture alignment: displaced Laterality: right (1) Metatarsal bone fracture Encounter type: initial encounter Metatarsal bone: second Fracture type: closed Fracture alignment: displaced Laterality: right Qualified Code(s): S92.321A - Displaced fracture of second metatarsal bone, right foot, initial encounter for closed fracture
--- NOTE | 2024-04-14 12:05 | Hospitalist Progress Note ---
Date of Service April 14, 2024 Assessment & Plan (1) Fall from standing: Plan: Tripped while walking to bathroom, no concerning prodromal symptoms PT recommending SNF- work towards placement (2) Metatarsal bone fracture: Plan: Ortho consult: non-operative, continue in hard sole shoe, weightbearing as tolerated, follow up 3-4 weeks in office for repeat XR Pain management: Tylenol 1000mg TID scheduled, oxycodone 5mg q4hrs PRN, Dilaudid IV 0.25mg q6h PRN (3) Fracture of phalanx of right great toe: Plan: as above (4) Nasal bone fracture: Plan: Conservative management Pain control as above (5) Abnormal finding on urinalysis: Plan: UCx growing E faecalis, pt remains asymptomatic No indication for treatment Plan VTE Prophylaxis - Lovenox 40mg SQ daily (start tomorrow night given significant ecchymosis and fall today) Diet - regular Disposition - admit to med/surg Admission and Anticipated Discharge Date Admission Date: April 12, 2024 Supervising Physician Co-Signing Physician Notes Attending attestation Pt seen and examined in concert with Dr. Escalona. In agreement with the documented findings as noted in the resident documentation with any exceptions or additions as noted here. Pain well controlled with postop shoe and current regimen. On examination, S1/S2 nl RRR no MCG. CTAB. Abd NT/ND BS+ve Fall from standing with multiple fractures - ortho consult - PT/OT - Continue pain management as noted. CM aware and exploring placement. Abnormal UA - UCx pending s/p 1 dose abx in ED. Else see resident documentation as noted. Subjective Patient seen and evaluated at bedside this morning. No acute events overnight. Patient still with pain in toe/foot on ambulation. Otherwise no acute concerns. Cleared by ortho for rehab. PT recommends SNF Review of Systems Review of Systems: reviewed, per HPI Physical Exam Physical Exam: Constitutional: well-appearing, no acute distress HEENT: Bruising to nasal bridge and under eyes, no conjunctival injection CV: regular rhythm, no murmur appreciated, extremities well-perfused, no LE edema Resp: CTABL, no wheezes/rales/rhonchi appreciated, no increased work of pablito thing GI: soft, nondistended, nontender, BS normoactive MSK: no gross deformities appreciated Skin: warm, dry, no rash appreciated Neuro: alert, oriented, no focal neurologic deficit appreciated Results & Data Results & Data Vital Signs (Past 12 Hours) Vital Signs Temp Pulse Resp BP Pulse Ox O2 Del Method 04/14/24 07:15 36.7 C 62 18 163/72 H 94 Room Air Resident Activity Tracking Resident Involvement: Resident Care Provided Care Provided: Adult Hospital Medicine (1) Fall from standing Encounter type: initial encounter Qualified Code(s): W19.XXXA - Unspecified fall, initial encounter (2) Metatarsal bone fracture Encounter type: initial encounter Fracture alignment: displaced Fracture type: closed Laterality: right Metatarsal bone: second Qualified Code(s): S92.321A - Displaced fracture of second metatarsal bone, right foot, initial encounter for closed fracture (3) Fracture of phalanx of right great toe Encounter type: initial encounter Fracture alignment: displaced Fracture type: closed Phalanx: proximal Qualified Code(s): S92.411A - Displaced fracture of proximal phalanx of right great toe, initial encounter for closed fracture (4) Nasal bone fracture Encounter type: initial encounter Fracture type: closed Qualified Code(s): S02.2XXA - Fracture of nasal bones, initial encounter for closed fracture
--- NOTE | 2024-04-15 16:36 | Hospitalist Progress Note ---
Date of Service April 15, 2024 Assessment & Plan (1) Fall from standing: Plan: Tripped while walking to bathroom, no concerning prodromal symptoms [facility] referral placed today (2) Metatarsal bone fracture: Plan: Ortho consult: non-operative, continue in hard sole shoe, weightbearing as tolerated, follow up 3-4 weeks in office for repeat XR Pain management: Tylenol 1000mg TID scheduled, oxycodone 5mg q4hrs PRN, Dilaudid IV 0.25mg q6h PRN (3) Fracture of phalanx of right great toe: Plan: as above (4) Nasal bone fracture: Plan: Conservative management Pain control as above (5) Abnormal finding on urinalysis: Plan: UCx growing E faecalis, pt remains asymptomatic No indication for treatment Plan VTE Prophylaxis - Lovenox 40mg SQ daily (start tomorrow night given significant ecchymosis and fall today) Diet - regular Disposition - admit to med/surg Admission and Anticipated Discharge Date Admission Date: April 12, 2024 Supervising Physician Co-Signing Physician Notes I personally examined the patient and verified all hernández points of history and exam, discussed case, and agree with decision making with Dr Escalona feeling ok just waiting on rehab. updated dtr at bedside as well vitals noted heent bridge of nose bruised, mmm breathing unlabored no focal neuro deficits Fall from standing with multiple fractures -Age-related osteoporosis with current pathologic fracture, right second metatarsal head and right first proximal phalanx - ortho consult appreciated - PT/OT - Continue pain management as noted. for rehab once bed available. Abnormal UA - seems most c/w asymptomatic bacteriuria given lack of sx Else see resident documentation as noted. Subjective Patient seen and evaluated at bedside this morning. No acute events overnight. Patient still with pain in toe/foot on ambulation. Otherwise no acute concerns. Cleared by ortho for rehab. Review of Systems Review of Systems: reviewed, per HPI Physical Exam Physical Exam: Constitutional: well-appearing, no acute distress HEENT: Bruising to nasal bridge and under eyes, no conjunctival injection CV: regular rhythm, no murmur appreciated, extremities well-perfused, no LE edema Resp: CTABL, no wheezes/rales/rhonchi appreciated, no increased work of breathing GI: soft, nondistended, nontender, BS normoactive MSK: no gross deformities appreciated Skin: warm, dry, no rash appreciated Neuro: alert, oriented, no focal neurologic deficit appreciated Results & Data Results & Data Vital Signs (Past 12 Hours) Vital Signs Temp Pulse Resp BP Pulse Ox O2 Del Method 04/15/24 14:16 36.8 C 58 L 16 155/78 H 92 Room Air 04/15/24 10:03 Room Air 04/15/24 07:18 36.5 C 63 16 169/83 H 92 Room Air Resident Activity Tracking Resident Involvement: Resident Care Provided Care Provided: Adult Hospital Medicine (1) Fall from standing Encounter type: initial encounter Qualified Code(s): W19.XXXA - Unspecified fall, initial encounter (2) Metatarsal bone fracture Encounter type: initial encounter Fracture alignment: displaced Fracture ty pe: closed Laterality: right Metatarsal bone: second Qualified Code(s): S92.321A - Displaced fracture of second metatarsal bone, right foot, initial encounter for closed fracture (3) Fracture of phalanx of right great toe Encounter type: initial encounter Fracture alignment: displaced Fracture type: closed Phalanx: proximal Qualified Code(s): S92.411A - Displaced fracture of proximal phalanx of right great toe, initial encounter for closed fracture (4) Nasal bone fracture Encounter type: initial encounter Fracture type: closed Qualified Code(s): S02.2XXA - Fracture of nasal bones, initial encounter for closed fracture
--- NOTE | 2024-04-15 19:20 | Billing Data ---
Date of Service April 15, 2024 Coding Level of Care Code 08466 SUB INP/OBS CARE
[2024-04-15 19:28] LABS: Hematocrit (blood only) 40.8 % (37.0-47.0); Mean Corpuscular Hemoglobin 30.1 pg (25.0-34.0); Mean Corpuscular Hgb Conc 31.9 g/dL (32.0-36.0); Mean Corpuscular Volume 94.4 fL (80.0-100.0); Mean Platelet Volume 11.7 fL (9.4-12.4); Platelet Count 180 K/uL (130-400); RDW Standard Deviation 45.2 fL (36.4-46.3); Red Blood Count 4.32 M/uL (4.20-5.40); White Blood Count 8.15 K/ul (4.8-10.8)
[2024-04-15 19:45] LABS: BUN Creatinine Ratio 16.3 (10-20); Creatinine Clr Calc Pharmacy 43.4 ml/min; Potassium 3.6 mmol/L (3.5-5.1)
[2024-04-15 21:17] LABS: Appearance Urine Clear (Clear); Bacteria Urine Automated 1+ (None Seen); Bilirubin Urine Negative (Negative); Blood Urine Negative (Negative); Cast Urine Automated 0-2 /lpf (0-2); Color Urine Yellow; Glucose Urine UA Negative (Negative); Ketones Urine Negative (Negative); Leukocyte Esterase Urine 3+ (Negative); Nitrite Urine Negative (Negative); Protein Urine Negative (Negative); RBC Urine Automated 0-2 /hpf (0-2); Specific Gravity Urine 1.011 (1.000-1.030); Urobilinogen Urine Negative (Negative); WBC Urine Automated >50 /hpf (0-5)
--- NOTE | 2024-04-16 09:12 | Discharge Summary ---
Date of Service April 16, 2024 Admission HPI Per Admitting Provider Sury Masters is an 88 year old female who presents to the ER due to a fall earlier today. She reports walking from her hallway into her bathroom and tripping on a raised area in between the carpeted and hard wood floors. This was while trying to get an incontinent pad as she just had an episode of incontinence trying to get to the toilet which is not unusual for her. She reports she was at her baseline health but has mobility issues at baseline and shuffles a lot. She had a similar fall last year causing a humeral fracture and required inpatient rehabilitation after that stay. She fell head first and reports pain over her left breast, right foot/toes and nose. She denies any groin/hip pain, back pain. She denies any shortness of breath, chest pain or dizziness prior to falling. She gets a little lightheaded at baseline when she first gets up in the morning but otherwise does not have an issue with dizziness. She reports taking all of her medications this morning. Her urine is a little darker than usual but she denies any other acute urinary problems and no fever or chills. Principal Diagnosis Constitutional: WD/WN, vitals as above Eyes: PERRL, conjunctivae normal, anicteric sclerae ENMT: Mouth: + dry oral mucous membranes Respiratory: normal respiratory effort, lungs clear to auscultation Cardiovascular: RRR, no murmur, no edema Gastrointestinal (Abdomen): normal bowel sounds, soft, nontender, no hepatosplenomegaly Musculoskeletal: right foot in surgical show, not removed Skin: + ecchymosis (superior to left breast, p mo-orbital) Neurologic: moves all extremities and awake; no focal motor deficits and not confused Speech / Cognition: normal speech Cranial Nerves: PERRL, EOM intact bilaterally, normal facial strength, able to rotate head bilaterally, able to elevate shoulders bilaterally, no nystagmus and symmetric palate elevation Psychiatric: A+Ox3, euthymic affect Genitourinary: no CVA tenderness Discharge Exam Constitutional: well-appearing, no acute distress HEENT: Bruising to nasal bridge and under eyes, no conjunctival injection CV: regular rhythm, no murmur appreciated, extremities well-perfused, no LE edema Resp: CTABL, no wheezes/rales/rhonchi appreciated, no increased work of breathing GI: soft, nondistended, nontender, BS normoactive MSK: no gross deformities appreciated Skin: warm, dry, no rash appreciated Neuro: alert, oriented, no focal neurologic deficit appreciated Discharge Data Allergies Allergy/AdvReac Type Severity Reaction Status Date / Time lisinopril AdvReac Unknown COUGH Verified 04/12/24 08:51 losartan AdvReac Unknown ABDOMINAL Verified 04/12/24 08:51 PAIN Consultations 04/12/24 13:30 ED Decision to Admit Stat 04/12/24 22:48 Consult Orthopedic Surgery Routine Ordered Studies 04/12/24 09:10 CT cervical spine wo con Stat CT chest diagnostic w con Stat CT facial bones wo con Stat CT head/brain wo con Stat Hospital Course (1) Fall from standing: Tripped while walking to bathroom, no concerning prodromal symptoms [facility] referral placed today (2) Metatarsal bone fracture: Ortho consult: non-operative, continue in hard sole shoe, weightbearing as tolerated, follow up with [facility] in 3-4 weeks in office for repeat XR Pain management: Tylenol 1000mg TID scheduled, oxycodone 5mg q4hrs PRN, Dilaudid IV 0.25mg q6h PRN (3) Fracture of phalanx of right great toe: as above (4) Nasal bone fracture: Conservative management Pain control as above (5) Abnormal finding on urinalysis: UCx growing E faecalis, pt remains asymptomatic No indication for treatment Plan Suspected osteoporosis: would recommend starting bisphosphonate therapy in one month or so Total Time Total Time Spent Total Time Spent (In Minutes): <30 Discharge Plan Discharge Items Patient Disposition: Transfer Inpatient Rehab Fac Reason For Visit: FALL, NASAL BONE FRACTURE, METATARSAL FRACTURE Discharge Diagnosis: Fall, nasal bone fracture, metatarsal fracture Activity: As commented below Activity Comment: Per PT and medical service at [facility] Non-emergency contact: Primary Care Provider Call non-emergency contact if: your symptoms worsen and your pain is not controlled Follow-up/Referrals: Alan Brewer MD [Primary Care Provider] - Andrez Gagnon DO [Physician] - Diet: Heart Healthy Addtl Attending Provider Instructions: You were admitted to the hospital for fall. You were found to have a fracture of your nose and in two places in your right foot. You were seen by orthopedics who do not think that you need any surgery. They recommend that you wear the hard sole shoe you were provided any time you are out of bed. You will need to follow up with their office in 3-4 weeks for repeat x-rays. . A discharge summary will be sent to your primary care physician to ensure continuity of care. Please bring this discharge summary with you to your next office appointment so that your provider can review it at that time. Follow-up appointments: Make a follow-up appointment with your PCP within the next week. It is very im portant that you follow up with them shortly after discharge from the hospital. We have requested an appointment for you to follow up with orthopedics in 3-4 weeks. If you do not hear from their office in by the end of this week you should call at Keep all your follow-up appointments as already scheduled. If you cannot make an appointment, notify your provider. Take your medications as instructed; do not skip a dose of your medicines. Make sure all of your doctors know every medicine you are taking (including emus-aae-pbkifok medicines, vitamins, and supplements). Call your primary care provider before taking any new medicines (including bwsj-vkc-cdpyvwd medicines, vitamins, and supplements), because some of these may interact with your current medications, or may make your symptoms worse. Tell your primary care provider if you cannot afford your medications. CONTACT YOUR PRIMARY CARE PROVIDER if you experience any of the following: Increased pain Difficulty following your treatment plan, or difficulty taking medications CALL 911 OR GO TO THE EMERGENCY DEPARTMENT if you experience any of the following: Sudden, severe abdominal pain or nausea/vomiting Severe chest pain, or chest pain that radiates (moves) to your jaw or arm Sudden, severe shortness of breath or difficulty breathing Thank you for allowing us to participate in your care. Addtl [employer] Libr[employer] Provider Instructions: ORTHOPEDIC INSTRUCTIONS Activity Recommendations: Weight-bear as tolerated in the hard soled shoe Follow-Up Visit: Follow-up with [facility] in 3 to 4 weeks. Please call the office to set up an appointment for a time that works for you. Pending Studies at Discharge: No Stand-Alone Forms: My [facility] [employer] [facility] Skilled Items Patient informed of condition?: Yes DNR: No (Conditional Code - No chest compressions, all other interventions okay) Discharge Level of Care: Acute rehab Communicable Disease: No Discharge Prognosis: Stable Lines: None Urinary Catheter: No Medications and DC Order Prescriptions: Continued nystatin 100,000 unit/gram powder 1 applic topical BID PRN (Reason: Candidiasis) Qty: 60 5RF acetaminophen 325 mg tablet 650 mg PO Q4H PRN (Reason: Pain) polyethylene glycol 3350 [Miralax] 17 gram/dose powder 17 g PO DAILY PRN (Reason: Constipation) albuterol sulfate 90 mcg/actuation HFA aerosol inhaler 2 puff inhalation Q4H PRN (Reason: shortness of breath) Qty: 18 5RF pravastatin 10 mg tablet 10 mg PO HS Qty: 90 3RF metoprolol succinate 100 mg tablet extended release 24 hr 100 mg PO DAILY Qty: 90 3RF ezetimibe 10 mg tablet 10 mg PO DAILY Qty: 90 3RF cholecalciferol (vitamin D3) 125 mcg (5,000 unit) capsule 125 mcg PO DAILY Qty: 30 0RF ascorbate calcium (vitamin C) 500 mg tablet 500 mg PO DAILY ketoconazole 2 % cream 1 applic topical DAILY Qty: 60 0RF Rx Instructions: Apply daily for 2 weeks aspirin 81 mg tablet 81 mg PO DAILY cranberry extract 500 mg tablet 500 mg PO BID Rx Instructions: administer with meals calcium carbonate 600 mg calcium (1,500 mg) tablet 600 mg PO DAILY amlodipine 10 mg tablet 10 mg PO DAILY Qty: 90 3RF PreserVision AREDS-2 250-90-40-1 mg Capsule 1 tab PO AMHS alendronate 70 mg tablet 70 mg PO WK Rx Instructions: Mondays Discharge Orders: Discharge Order (Routine); Ordered 04/16/24 Ordered By: Timothy Blas/Other Patient Handouts: UTIs, Preventing Falls in the Home Admission Data Admit Date/Time: 04/12/24 13:37 Attending Provider: Ascencion Downey Admit Provider: Kj Guzman Primary Care Provider: Alan Brewer Other Providers: Kj Guzman; Andrez Gagnon; [facility] Other Interventions: Discharge Summary Assessment (RN) Last Done: 04/16/24 13:25 Supervising Physician Co-Signing Physician Notes I personally examined the patient and verified all hernández points of history and exam, discussed case, and agree with decision making with Dr Escalona for rehab today vitals noted heent bridge of nose bruised, mmm breathing unlabored no focal neuro deficits Fall from standing with multiple fractures -Age-related osteoporosis with current pathologic fracture, right second metatarsal head and right first proximal phalanx - ortho consult appreciated - PT/OT - Continue pain management as noted. for rehab today. outpatient bone health w/u//management Abnormal UA - seems most c/w asymptomatic bacteriuria given lack of sx; no treatment needed at this time Else see resident documentation as noted. Resident Activity Tracking Resident Involvement: Resident Care Provided Care Provided: Adult Hospital Medicine
[2024-04-16 11:05] VITALS: PULSE 54; RESP 16; TEMP 98.1; O2SAT 95
[2024-04-16 12:43] VITALS: BP 125/68
--- NOTE | 2024-04-16 17:37 | Billing Data ---
Date of Service April 16, 2024 Coding Level of Care Code 21648 IN/OBS DISCH 30 MIN/LESS
== END 2024-04-16 13:43 | DRG 544 ==
LOC: ED 08:23 → 3N 13:37 → SUATTDRO 13:37 → 3N 16:21